=== PATIENT | male | born 1965 | race Caucasian/White ===

== ENCOUNTER → 2020-02-13 10:03 | Outpatient (BNVA) | payer MEDICARE, MEDICAID, SELFPAY | PROVIDERS: Family Provider Registered Nurse; PCP Registered Nurse; Visit Provider Registered Nurse | DX: M62.838 Other muscle spasm (principal); M54.6 Pain in thoracic spine; M25.369 Other instability, unspecified knee; M25.362 Other instability, left knee; G89.29 Other chronic pain; M99.01 Segmental and somatic dysfunction of cervical region | CPT/HCPCS: 80053; 85651; 86140 ==

== ENCOUNTER 2020-02-22 14:43 | Outpatient (RCR) | payer MEDICARE, SELFPAY | END 2020-03-21 23:59 | disposition home or self-care (01) | LOC: SPT 14:43 | PROVIDERS: Family Provider Registered Nurse; PCP Registered Nurse; Referring Provider Registered Nurse; Visit Provider Registered Nurse | DX: M25.362 Other instability, left knee (principal) | CPT/HCPCS: 97161 ==

== ENCOUNTER 2020-02-22 15:53 | Outpatient (CLI) | payer MEDICARE, SELFPAY ==
--- NOTE | 2020-02-22 16:45 | MR_ITS ---
WS: [id number] MRI RIGHT SHOULDER NONCONTRAST TECHNIQUE: Sagittal T2, coronal T1, T2 and proton density imaging. Axial gradient PDE imaging. CLINICAL INFORMATION: M25.511 - Pain in right shoulder COMPARISON: None. FINDINGS: Moderate degenerative arthritis at the AC joint. Mild edema at the AC joint with mild downsloping acr omion. Slight subacromial spurring. Narrowing of the subacromial space. Mild chronic thinning of the supraspinatus with tendinopathy. Tiny intrasubstance tear in the distal supraspinatus. Normal infraspinatus. Normal teres minor. Normal subscapularis. Normal biceps tendon in the bicipital groove. Normal biceps labral anchor. Normal intra-articular biceps tendon. Normal bone marrow signal in the glenoid and humerus. Mild degenerative fraying of the glenoid labrum. MR/MR shoulder RT wo con* [id number] IMPRESSION: 1. Moderate degenerative arthritis at the AC joint with mild edema and mild do wnsloping of the acromion. 2. Tendinopathy with a tiny intrasubstance tear in the distal supraspinatus. 3. Rotator cuff is otherwise intact. 4. Normal biceps tendon in the bicipital groove. 5. Degenerative fraying of the glenoid labrum.
== END 2020-02-22 15:54 | disposition home or self-care (01) ==
LOC: RADSHAW 15:56
PROVIDERS: PCP Registered Nurse; Visit Provider Registered Nurse
DX: M19.011 Primary osteoarthritis, right shoulder (principal)
CPT/HCPCS: 73221

== ENCOUNTER 2021-01-06 10:20 | Outpatient (CLI) | payer MEDICARE, SELFPAY ==
[2021-01-06 10:58] LABS: Basophils # 0.1 10^3/uL (0.0-0.1); Basophils % 1.1 %; Eosinophils % 0.8 %; Hematocrit 54.4 % (42.0-52.0); Lymphocytes # 0.8 10^3/uL (0.8-4.8); Lymphocytes % 15.7 %; Mean Corpuscular HGB Conc 33.1 g/dL (30.0-36.0); Mean Corpuscular Hemoglobin 31.2 pg (28.0-34.0); Mean Corpuscular Volume 94.3 fl (80-94); Mean Platelet Volume 9.8 fL (7.4-10.4); Monocytes # 0.4 10^3/uL (0.2-0.9); Monocytes % 6.6 %; Neutrophils # 3.99 10^3/uL (1.8-7.7); Neutrophils % 75.4 %; Nucleated Red Blood Cells % 0 %; Platelet Count 335 10^3/cmm (130-400); Red Blood Count 5.77 10^6/uL (4.1-5.3); Red Cell Distribution Width 12.3 % (12.1-15.1); White Blood Count 5.3 10^3/uL (4.0-10.0)
[2021-01-06 11:41] LABS: Troponin T (5th) Once 9 ng/L (0-15)
[2021-01-06 11:42] LABS: CRP High Sensitivity Cardiac < 0.150 mg/dL (0.0-0.3); Chol HDL Ratio 3.53 mg/dL (1.0-5.00); Cholesterol 201 mg/dL (0-200); HDL Cholesterol 57 mg/dL (60-100); LDL Cholesterol Calculated 117 mg/dL (50-129); LDL HDL Ratio 2.05 RATIO (0.00-3.22); Triglycerides 133 mg/dL (0-150)
[2021-01-06 11:43] LABS: Alanine Aminotransferase 115 U/L (0-41); Albumin Level 4.6 g/dL (3.5-5.2); Alkaline Phosphatase 78 IU/L (40-130); Anion Gap 17.2 (5-19); Aspartate Amino Transferase 45 U/L (0-40); Blood Urea Nitrogen 12 mg/dL (6-20); Calcium 9.4 mg/dL (8.5-10.5); Carbon Dioxide 22 mmol/L (22-29); Chloride 104 mmol/L (98-107); Globulin 2.6 g/dL (1.3-4.6); Glomerular Filtration Rate 100.7 mL/min (90-130); Glucose 112 mg/dL (65-115); Osmolality Calculated 289 mOsm/kg (285-295); Potassium 4.2 mmol/L (3.5-5.1); Sodium 139 mmol/L (136-145); Total Bilirubin 0.4 mg/dL (0.15-1.2); Total Protein 7.2 g/dL (6.6-8.7)
== END 2021-01-06 10:21 | disposition home or self-care (01) ==
PROVIDERS: PCP Registered Nurse; Visit Provider Registered Nurse
DX: I10 Essential (primary) hypertension (principal); R06.02 Shortness of breath; E78.5 Hyperlipidemia, unspecified
CPT/HCPCS: 36415; 80053; 80061; 84484; 85025; 86141

== ENCOUNTER 2021-01-08 12:08 | Outpatient (CLI) | payer MEDICARE, SELFPAY ==
--- NOTE | 2021-01-08 12:11 | ECG_ITS ---
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 Interpretive Statements NAME OF STUDY: TREADMILL STRESS TEST INDICATION: Shortness of Breath, PROCEDURE: At the baseline, the patient's blood pressure was 152/105 with a heart rate of 84. The baseline electrocardiogram showed normal sinus rhythm with poor R wave progression. Nonspecific T wave changes. Possible old inferior wall myocardial infarction. The patient exercised for 5 minutes and 31 seconds on a standard Irving protocol. Patient attained a maximum heart rate of 154 beats per minute(92% of the maximum predicted heart rate) with a blood pressure at the peak exercise of 211/100 mm Hg. The EKG at the peak exercise revealed no significant changes. Patient did not have any chest pain or any significant cardiac arrhythmias with the exercise During the recovery phase, there were no new changes. Blood pressure at the end of the recovery phase was 188/74 mm Hg with a heart rate of 111 per minute. CONCLUSION: 1. Nonspecific EKG changes with the treadmill exercise 2. No exercise-induced chest pain or cardiac arrhythmia 3. Impaired exercise tolerance, attained a maximum of 7.0 METs Electronically Signed On 01-09-2021 23:28:21 CDT by Jayshree Germain M.D. [id number]
[2021-01-08 12:12] VITALS: BMI 32.1
[2021-01-08 12:44] VITALS: BP 180/74; PULSE 99
== END 2021-01-08 12:09 | disposition home or self-care (01) ==
LOC: CDL 12:09
PROVIDERS: PCP Registered Nurse; Visit Provider Registered Nurse
DX: R06.02 Shortness of breath (principal)
CPT/HCPCS: 93017

== ENCOUNTER 2021-03-10 07:36 | Outpatient (CLI) | payer MEDICARE, SELFPAY ==
--- NOTE | 2021-03-10 08:00 | USCV_ITS ---
Zaid Girard Age: 55 Gender: M : 1965 Exam Date: 03/10/2021 08:00 Ordering Phys: Jayshree Germain MD ([email or web address]) Technologist: DIONNE Exam Location: [facility] [place] Indication: SOB X 6 MONTHS. NO HX CARDIAC INTERVENTION BP: 155 / 98 HR: 82 Rhythm: Sinus Technical Quality: Adequate MEASUREMENTS (Male / Female) Normal Values 2D ECHO LV Diastolic Diameter PLAX 5.0 cm 4.2 - 5.9 / 3.9 - 5.3 cm LV Systolic Diameter PLAX 3.1 cm IVS Diastolic Thickness 1.2 cm 0.6 - 1.0 / 0.6 - 0.9 cm IVS Systolic Thickness 1.8 cm LVPW Diastolic Thickness 1.4 cm 0.6 - 1.0 / 0.6 - 0.9 cm LVPW Systolic Thickness 1.4 cm LVOT Diameter 2.0 cm LV Ejection Fraction 2D Teich 66.1 % LV Ejection Fraction MOD 2C 51.7 % LV Ejection Fraction 2C AL 54.1 % LA Diameter 3.8 cm LA Width 3.6 cm LA Height 4.2 cm RA Width 3.0 cm RA Height 4.5 cm Aorta at Sinotubular Diameter 3.2 cm M-MODE Aortic Annulus Diameter 3.9 cm LA Ao Ratio MM 1.0 MV E Point Septal Separation 0.5 cm DOPPLER AV Peak Velocity 69.0 cm/s LVOT Peak Velocity 70.0 cm/s AV Area Cont Eq vti 1.9 cm squared AV Area Cont Eq pk 3.2 cm squared MV Peak Velocity 79.0 cm/s MV Area PHT 2.6 cm squared Mitral E to A Ratio 0.5 MV E' Velocity 18.0 cm/s Mitral E to MV E' Ratio 5.0 Mitral E to LV E' Lateral Ratio 4.1 Mitral E to LV E' Septal Ratio 6.5 TR Peak Velocity 183.3 cm/s TR Peak Gradient 13.4 mmHg Right Atrial Pressure 5.0 mmHg Pulmonary Artery Systolic Pressu 18.4 mmHg PV Peak Velocity 89.0 cm/s RV Acceleration Time 0.0 s RV Ejection Time 0.3 s RV AcT/ET 0.1 FINDINGS Left Ventricle Normal left ventricular size and systolic function, EF 58 %. Mild left ventricular hypertrophy. Grade I/IV diastolic dysfunction (abnormal relaxation filling pattern), normal to mildly elevated filling pressures. Right Ventricle Normal right ventricular size and systolic function. Right Atrium Normal right atrial size. Left Atrium The left atrium is normal in size. Mitral Valve Thickened anterior mitral leaflet.mild-moderate mitral valve regurgitation. Aortic Valve No gross abnormalities noted Tricuspid Valve No gross abnormalities noted Pulmonic Valve Mild pulmonary valve regurgitation. Pericardium Normal pericardium without effusion. Aorta Normal ascending aorta dimension. CONCLUSIONS Normal left ventricular size and systolic function, EF 58 %. Mild left ventricular hypertrophy. Grade I/IV diastolic dysfunction (abnormal relaxation filling pattern), normal to mildly elevated filling pressures. Thickened anterior mitral leaflet.mild-moderate mitral valve regurgitation. Mild pulmonary valve regurgitation. Trace of tricuspid regurgitation Possibly normal PA pressure There is no pericardial effusion. There are no intracardiac masses. Compared to the study from 12/18/2015, the mitral regurgitation appears to be new Dr Jayshree Germain MD [facility] (Electronically Signed) Final Date: 13 March 2021 08:17 S
== END 2021-03-10 07:37 | disposition home or self-care (01) ==
LOC: RAD 07:38
PROVIDERS: PCP Registered Nurse; Visit Provider Internal Medicine Cardiovascular Disease
DX: R06.00 Dyspnea, unspecified (principal); R06.02 Shortness of breath; I08.1 Rheumatic disorders of both mitral and tricuspid valves
CPT/HCPCS: 93306

== ENCOUNTER → 2021-06-02 10:52 | Outpatient (BNVA) | payer MEDICARE, SELFPAY | PROVIDERS: PCP Registered Nurse; Visit Provider Nurse Practitioner Family | DX: R06.02 Shortness of breath (principal); G47.30 Sleep apnea, unspecified; G47.00 Insomnia, unspecified; I10 Essential (primary) hypertension; R07.9 Chest pain, unspecified | CPT/HCPCS: 99214 ==

== ENCOUNTER → 2021-07-07 09:43 | Outpatient (BNVA) | payer MEDICARE, SELFPAY | PROVIDERS: PCP Registered Nurse; Visit Provider Internal Medicine Cardiovascular Disease | DX: I10 Essential (primary) hypertension (principal); R07.9 Chest pain, unspecified; K21.9 Gastro-esophageal reflux disease without esophagitis; M19.011 Primary osteoarthritis, right shoulder; M67.911 Unspecified disorder of synovium and tendon, right shoulder | CPT/HCPCS: 99213; 99214 ==

== ENCOUNTER → 2022-01-19 15:03 | Outpatient (BNVA) | payer MEDICARE, SELFPAY | PROVIDERS: PCP Registered Nurse; Visit Provider Internal Medicine Cardiovascular Disease | DX: I10 Essential (primary) hypertension (principal) | CPT/HCPCS: 99213; 99214 ==

== ENCOUNTER → 2022-02-13 09:06 | Outpatient (BNVA) | payer MEDICARE, SELFPAY | PROVIDERS: PCP Registered Nurse; Visit Provider Nurse Practitioner Family | DX: I10 Essential (primary) hypertension (principal); R06.02 Shortness of breath; R07.9 Chest pain, unspecified | CPT/HCPCS: 80048 ==

== ENCOUNTER → 2022-09-14 08:38 | Outpatient (BNVA) | payer MEDICARE, SELFPAY | PROVIDERS: PCP Registered Nurse; Visit Provider Registered Nurse | DX: E78.5 Hyperlipidemia, unspecified (principal); I10 Essential (primary) hypertension | CPT/HCPCS: 80053; 80061; 85025 ==

== ENCOUNTER → 2023-01-18 14:17 | Outpatient (BNVA) | payer MEDICARE, SELFPAY | PROVIDERS: PCP Registered Nurse; Visit Provider Internal Medicine Cardiovascular Disease | DX: I10 Essential (primary) hypertension (principal) | CPT/HCPCS: 99214 ==

== ENCOUNTER 2023-01-26 14:30 | Observation (INO) | payer MEDICARE, SELFPAY ==
[2023-01-26] VITALS (57 sets, daily range): BP systolic 95–173; BP diastolic 63–125; PULSE 74–96; RESP 16–41; TEMP 36.4–36.5; O2SAT 89–99; BMI 33.0
--- NOTE | 2023-01-26 14:31 | ECG_ITS ---
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 Measurements Intervals [place] Rate: 89 P: 26 PA: 171 QRS: -19 QRSD: 95 T: 30 QT: 344 QTc: 419 Interpretive Statements SINUS RHYTHM MODERATE VOLTAGE CRITERIA FOR LVH, CONSIDER NORMAL VARIANT [MEETS CRITERIA IN ONE OF: R(aVL), S(V1), R(V5), R(V5/V6)+S(V1)] INFERIOR MYOCARDIAL INFARCTION , PROBABLY OLD [40+ ms Q WAVE AND/OR ST/T ABNORMALITY IN II/aVF] Compared to ECG 09/02/2018 15:22:53 Myocardial infarct finding now present T-wave abnormality no longer present Electronically Signed On 01-26-2023 17:19:48 DIELECTRIC TESTING MACHINE OPERATOR by Armando Andrea M.D. [id number] f
--- NOTE | 2023-01-26 14:31 | XR_ITS ---
WS: [id number] Portable AP upright chest, 01/26/2023 Clinical Data: cp Comparison: Portable chest, 09/02/2018. Findings: No nodules, masses or effusions are seen. The heart is normal. The pulmonary vascularity is not increased. No pneumonia or pneumothorax is seen. There are monitor leads on the chest wall. Impression: Negative chest.
--- NOTE | 2023-01-26 14:43 | W.ED.CHESTPA ---
HPI - Chest Pain General: Chief Complaint: Chest Pain Stated Complaint: chest pressure Time Seen by Provider: 01/26/23 14:33 Source: patient Mode of arrival: ambulatory Limitations: no limitations History of Present Illness: Patient is a 57-year-old male with past medical history of hypertension who presents to the emergency department complaining of left chest pressure onset one week. Patient states last Wednesday he noticed a pressure/squeezing like sensation in the left side of his chest that seems to come and go while at rest. He states symptoms significantly worsen with minimal exertion and has limited his activity. He reports becoming very short of breath with minimal exertion. States he usually walks up to 5 miles a day and now can barely walk across the parking lot before he is winded, fatigued, and has to rest due to chest tightness. He states recently pain has started to radiate into his left neck/left arm. He has noticed some mild extremity swelling stating his wedding ring is tight and he can now visualize a sock line. States he has lost about 14 pounds with diet/exercise. Denies recent illness/URI like symptoms. Reports strong cardiac family history stating his father has had multiple MIs starting in his 50s. Most recent cardiac studies listed below: Date of Service: 03/10/21 Procedure(s): CV. echo complete* [id number] ?CONCLUSIONS ?Normal left ventricular size and systolic function, EF 58 %. ?Mild left ventricular hypertrophy. Grade I/IV diastolic ?dysfunction (abnormal relaxation filling pattern), normal to?mildly elevated filling pressures. ?Thickened anterior mitral leaflet.mild-moderate mitral valve?regurgitation. ?Mild pulmonary valve regurgitation. ?Trace of tricuspid regurgitation ?Possibly normal PA pressure ?There is no pericardial effusion. ?There are no intracardiac masses. ?Compared to the study from 12/18/2015, the mitral regurgitation?appears to be new ?Dr Jayshree Germain MD [facility]? ?(Electronically Signed) 01/08/21 Treadmill Stress Test 1.? Nonspecific EKG changes with the treadmill exercise 2.? No exercise-induced chest pain or cardiac arrhythmia 3.? Impaired exercise tolerance, attained a maximum of 7.0 METs 09/15/18 Stress Test Myocardial perfusion imaging is normal and low probability for obstructive ?coronary artery disease.? EKG segment will be documented separately. 1. No significant EKG changes with the LexiScan infusion. 2. No LexiScan induced chest pain or cardiac arrhythmia. 3. Normal blood pressure and heart rate response. complaint: chest pain Onset (ago): week(s) (one week) Timing of current episode: episodic Prior episodes: No Onset: during rest and during exertion Pain location: left chest Pain radiation: left arm and neck Severity: mild Quality: tightness and other (pressure, squeezing) Relieving factors: rest Exacerbating factors: exertion and movement Associated symptoms: Reports dyspnea; Deny abdominal pain, diaphoresis, fever(s), nausea, palpitations, syncope or vomiting Treatment prior to arrival: none Risk Factors: Coronary artery disease risk factors: hyperlipidemia, hypertension and family history of CAD before age 50 Thoracic aortic dissection risk factors: none Review of Systems Const: Reports: change in weight (states he has lost 14 lbs with diet/exercise ); Denies: fever(s), chills, fatigue, night sweats or diaphoresis Eyes: Denies: change in vision or blurry vision Card: Reports: chest pain, edema and dyspnea on exertion; Denies: palpitations, irregular heart rhythm, lightheadedness, syncope, pre-syncope, orthopnea, leg pain with exertion or acrocyanosis Resp: Reports: dyspnea; Denies: productive cough, non-productive cough, wheezing, pain on inspiration, change in phlegm color, hemoptysis or chest congestion GI: Denies: abdominal pain, nausea, vomiting, heartburn or diarrhea : Denies: difficulty urinating or dysuria Musc: Denies: neck pain, back pain, extremity pain, extremity swelling or joint pain Skin/Breast: Denies: rash Neuro: Denies: headache(s), numbness in extremities, weakness in extremities, sensory changes or dizziness Psych: Denies: anxiety PFSH ED PFSH: Medical History GERD (gastroesophageal reflux disease) HTN (hypertension) Hx of fracture of skull Shortness of breath Sleep apnea Surgical History History of surgery on arm History of tonsillectomy and adenoidectomy History of total left hip replacement x 2 Hx of hernia repair x 2 Family History Mother CAD (coronary artery disease) Stroke Hypertension Father CAD (coronary artery disease) HI x 4, started in his 50's Diabetes Grandmother Dementia Grandfather Dementia Stroke Social History Smoking and tobacco/nicotine status: never used tobacco/nicotine Alcohol intake: current Alcohol intake frequency: 3 or more drinks per day Substance/Drug Use: never Lives independently: No Household members: spouse and children Marital status: Current occupational status: unemployed Do you think of yourself as: Straight/Heterosexual Current gender identity: Male Agree to transfusion: Yes Physical Exam Const: COMMON NORMALS: no acute distress, patient oriented x3, no limitations, alert and well nourished GENERAL APPEARANCE: cooperative NUTRITIONAL APPEARANCE: overweight ORIENTATION/CONSCIOUSNESS: Yes awake, Yes oriented to person, Yes oriented to place and Yes oriented to time HENMT: COMMON NORMALS: normocephalic and atraumatic HEAD & SCALP: normal to inspection, normocephalic and atraumatic Neck/C-Spine: COMMON NORMALS: full ROM, no lymphadenopathy, supple, no meningeal signs, no JVD and No carotid bruits Chest: COMMONS NORMALS: normal inspection of the chest and normal palpation of entire chest wall Resp: COMMON NORMALS: normal respiratory effort and clear to auscultation bilaterally AUSCULTATION: clear to auscultation bilaterally Cardio: COMMON NORMALS: no JVD, regular rate, regular rhythm and Peripheral pulses 2+ throughout JUGULAR VENOUS DISTENTION: no JVD RATE: regular rate RHYTHM: regular rhythm BRUITS: no carotid bruits PERIPHERAL PULSES: Peripheral pulses 2+ throughout GI: COMMON NORMALS: Normal to inspection, nondistended, normoactive bowel sounds present, Soft to palpation, non-tender, No hepatosplenomegaly present and no masses PALPATION: Yes Soft to palpation and Yes No hepatosplenomegaly present : COMMON NORMALS: Yes no CVA tenderness BLADDER/KIDNEY EXAM: Yes no CVA tenderness Back/Pelvis: COMMON NORMALS: no CVA tenderness and thoracic and lumbar spine normal to inspection Extremity: COMMON NORMALS: normal to inspection NARRATIVE EXTREMITY EXAM: very mild non-pitting edema; can see sock line-states this is abnormal for him GENERAL: Yes normal exam except as noted Neuro: COMMON NORMALS: patient oriented x3, moves all extremities, no focal motor deficits and no sensory deficits noted SENSORIUM/ORIENTATION: Yes alert, Yes oriented to person, Yes oriented to place and Yes oriented to time MENINGEAL SIGNS: Yes no meningeal signs Skin: COMMON NORMALS: no rashes or lesions noted GENERAL SKIN EXAM: no rashes or lesions noted Course Consultations: Consultation #1: Dr. Garcia-will admit patient Vital Signs: Vital signs: Vital Signs Temperature 97.5 F L 01/26/23 14:39 Pulse Rate 83 01/26/23 16:35 Respiratory Rate 26 H 01/26/23 16:35 Blood Pressure 143/98 01/26/23 16:35 Pulse Oximetry 93 01/26/23 16:35 Oxygen Delivery Me thod Room Air 01/26/23 14:42 MDM - Chest Pain Medical Decision Making Patient is a nice 57-year-old male with a history of hypertension and hyperlipidemia here for complaints of worsening chest pain over the past week. He feels like pain is intermittently present at rest with significant worsening even with minimal exertion. He states he normally walks up to 5 miles a day and can barely walk across the parking lot now before the chest pressure/tightness and shortness of breath limits him and he has to sit down and rest. He does have a strong cardiac family history with his dad having multiple MIs in his early 50s. Patient was given 2 nitro here with alleviation of his symptoms. Blood work overall is reassuring with a normal baseline troponin and nonsignificant delta although given his history I feel patient would most likely benefit from observation. Most likely needs repeat stress testing as last one was two years ago. Spoke to Dr. Thomas who agrees will place admit orders. I spoke to hospitalist Dr. Garcia who will admit. Lab Data 01/26/23 14:44 01/26/23 14:44 Laboratory Results WBC 6.58 10^3/uL (3.29-11.43) 01/26/23 14:44 RBC 5.19 10^6/uL (3.85-5.65) 01/26/23 14:44 Hgb 16.40 g/dL (11.27-16.99) 01/26/23 14:44 Hct 48.0 % (37-53) 01/26/23 14:44 MCV 92.5 fl (82-101) 01/26/23 14:44 MCH 31.6 pg (27-33) 01/26/23 14:44 MCHC 34.2 g/dL (30-55) 01/26/23 14:44 RDW 12.6 % (12.1-15.1) 01/26/23 14:44 Plt Count 315 10^3/cmm (157-399) 01/26/23 14:44 MPV 9.8 fL (7.4-10.4) 01/26/23 14:44 Neut % (Auto) 66.3 % 01/26/23 14:44 Lymph % (Auto) 22.3 % 01/26/23 14:44 [place] % (Auto) 7.8 % 01/26/23 14:44 Eos % (Auto) 1.8 % 01/26/23 14:44 Baso % (Auto) 1.2 % 01/26/23 14:44 Neut # (Auto) 4.36 10^3/uL (1.8-7.7) 01/26/23 14:44 Lymph # (Auto) 1.5 10^3/uL (0.8-4.8) 01/26/23 14:44 [place] # (Auto) 0.5 10^3/uL (0.2-0.9) 01/26/23 14:44 Eos # (Auto) 0.1 10^3/uL (0.0-0.8) 01/26/23 14:44 Baso # (Auto) 0.1 10^3/uL (0.0-0.1) 01/26/23 14:44 Nucleated RBC % (auto) 0 % 01/26/23 14:44 Nucleated RBCs # 0.0 /100WBC 01/26/23 14:44 D-Dimer 0.30 ug/mLFEU (0-0.59) 01/26/23 14:44 Sodium 138 mmol/L (136-145) 01/26/23 14:44 Potassium 4.4 mmol/L (3.5-5.1) 01/26/23 14:44 Chloride 106 mmol/L (98-107) 01/26/23 14:44 Carbon Dioxide 20 mmol/L (22-29) L 01/26/23 14:44 Anion Gap 16.4 (5-19) 01/26/23 14:44 BUN 19 mg/dL (6-20) 01/26/23 14:44 Creatinine 1.0 mg/dL (0.7-1.2) 01/26/23 14:44 GFR Calculation 77.3 mL/min (90-130) L 01/26/23 14:44 Glucose 105 mg/dL (65-115) 01/26/23 14:44 Calculated Osmolality 289 mOsm/kg (285-295) 01/26/23 14:44 Calcium 9.6 mg/dL (8.5-10.5) 01/26/23 14:44 Total Bilirubin 0.4 mg/dL (0.15-1.2) 01/26/23 14:44 AST 31 U/L (0-40) 01/26/23 14:44 ALT 77 U/L (0-41) H 01/26/23 14:44 Alkaline Phosphatase 67 U/L (40-130) 01/26/23 14:44 Troponin T Baseline 8 ng/L (0-15) 01/26/23 14:44 Troponin T 120 Minute 10.01 ng/L (0-15) 01/26/23 16:28 NT-Pro-B Natriuret Pep < 36 pg/mL (0-125) 01/26/23 14:44 Total Protein 6.4 g/dL (6.6-8.7) L 01/26/23 14:44 Albumin 4.6 g/dL (3.5-5.2) 01/26/23 14:44 Globulin 1.8 g/dL (1.3-4.6) 01/26/23 14:44 All radiology interpretation(s) finalized by discharge Discharge Plan Discharge Patient Disposition: Placed in Observation Clinical Impression: Chest pain Qualifiers: Chest pain type: unspecified Qualified Code(s): R07.9 - Chest pain, unspecified Coding Level of Care Code ED Turner And Former Automatic for Tyson Alonzo
[2023-01-26 14:51] LABS: Basophils # 0.1 10^3/uL (0.0-0.1); Basophils % 1.2 %; Eosinophils # 0.1 10^3/uL (0.0-0.8); Eosinophils % 1.8 %; Lymphocytes # 1.5 10^3/uL (0.8-4.8); Lymphocytes % 22.3 %; Mean Corpuscular HGB Conc 34.2 g/dL (30-55); Mean Corpuscular Hemoglobin 31.6 pg (27-33); Mean Corpuscular Volume 92.5 fl (82-101); Mean Platelet Volume 9.8 fL (7.4-10.4); Monocytes # 0.5 10^3/uL (0.2-0.9); Monocytes % 7.8 %; Neutrophils # 4.36 10^3/uL (1.8-7.7); Neutrophils % 66.3 %; Nucleated Red Blood Cells % 0 %; Platelet Count 315 10^3/cmm (157-399); Red Blood Count 5.19 10^6/uL (3.85-5.65); Red Cell Distribution Width 12.6 % (12.1-15.1); White Blood Count 6.58 10^3/uL (3.29-11.43)
[2023-01-26] MEDS: labetalol 5 mg/mL SDV 20mL 10 MG IVP (15:04)
[2023-01-26 15:13] LABS: Troponin(5th) Baseline 8 ng/L (0-15)
[2023-01-26 15:15] LABS: Alanine Aminotransferase 77 U/L (0-41); Albumin Level 4.6 g/dL (3.5-5.2); Alkaline Phosphatase 67 U/L (40-130); Aspartate Amino Transferase 31 U/L (0-40); Blood Urea Nitrogen 19 mg/dL (6-20); Calcium 9.6 mg/dL (8.5-10.5); Carbon Dioxide 20 mmol/L (22-29); Chloride 106 mmol/L (98-107); Globulin 1.8 g/dL (1.3-4.6); Glomerular Filtration Rate 77.3 mL/min (90-130); Glucose 105 mg/dL (65-115); Osmolality Calculated 289 mOsm/kg (285-295); Sodium 138 mmol/L (136-145); Total Bilirubin 0.4 mg/dL (0.15-1.2); Total Protein 6.4 g/dL (6.6-8.7)
[2023-01-26 15:18] LABS: Anion Gap 16.4 (5-19); Potassium 4.4 mmol/L (3.5-5.1)
[2023-01-26 15:47] LABS: NT Pro B Type Natriuretic Pept < 36 pg/mL (0-125)
[2023-01-26] MEDS: nitroglycerin 0.4 mg sublingual Tablet SUBLINGUAL ×2 (15:54→16:15)
--- NOTE | 2023-01-26 16:37 | ECG_ITS ---
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 Measurements Intervals [place] Rate: 79 P: 40 ME: 179 QRS: -21 QRSD: 98 T: 46 QT: 358 QTc: 413 Interpretive Statements SINUS RHYTHM BORDERLINE LEFT AXIS DEVIATION [QRS AXIS < -20] Compared to ECG 01/26/2023 14:36:30 Myocardial infarct finding no longer present Electronically Signed On 01-26-2023 17:19:59 AIRCRAFT NAVIGATOR by Armando Andrea M.D. [id number]
--- NOTE | 2023-01-26 16:59 | PM.HP ---
Providers/Chief Complaint Admitting Physician: Daniel Garcia Primary Care Provider: SHELLEY Rodriguez Chief Complaint: chest pressure History of Present Illness Zaid Girard is a 57 year old male with a past medical history significant for GERD, hypertension, skull fracture, and sleep apnea who presents emergency department chest pressure. Patient reports symptoms started last Wednesday. He thinks he was at rest when he started and since that time they come and go. Exertion consistently makes the symptoms worse. 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 He states that sensations not pain but it is a strong pressure on the left side of his chest with radiation up into the left shoulder and arm. He also notes exertion at night when he gets up to the restroom to lay back down he seems to become symptomatic as well. Rest seems to improve the symptoms somewhat. In the ED, troponin was within normal limits. EKG was negative for STEMI. He was treated with nitroglycerin initially without significant change. He received a second nitroglycerin with significant fragment and the pressure. Patient denies prior cardiac catheterization. He had a stress test about 2 years ago which showed nonspecific EKG changes with exercise and impaired exercise tolerance but only 7 METS obtained. Echocardiogram in 2020 showed preserved LVEF of 58%, mild LVH, and grade I/V diastolic dysfunction. Endorses a strong family history in both parents. His father had multiple myocardial infarctions with his earliest massive heart attack in his early 50s. Patient has a history of hypertension. He follows with Dr. Logan. He states he was seen about a week ago started on new medication. He is only taken about 1 dose of his medication there was some trouble getting it from pharmacy initially. He reports he had a lot of trouble with his blood pressure over the years. He cannot remember his exact medications but states that his home blood pressures usually runs about 140-160/90-100. His pressures emergency room are similar to this number. Review of Systems Narrative: A complete review of systems was obtained and is negative except as stated in HPI. Medications/Allergies Home Medications Medication Instructions Recorded Confirmed Last Taken Type ibuprofen 200 mg tablet (Advil) 200 mg PO Q6H PRN 03/20/19 09/15/22 Unknown History nitroglycerin 0.4 mg sublingual 0.4 mg sublingual Q5M PRN 03/20/19 09/15/22 Unknown History tablet (Nitrostat) ascorbate calcium (vitamin C) 500 500 mg PO DAILY 01/21/21 09/15/22 Unknown History mg tablet cholecalciferol (vitamin D3) 25 25 mcg PO DAILY 01/21/21 09/15/22 Unknown History mcg (1,000 unit) capsule lactobacillus combination no.4 3 3,000 mmu cells PO DAILY 01/21/21 09/15/22 Unknown History billion cell capsule (Probiotic) melatonin 10 mg capsule 40 mg PO DAILY 01/21/21 09/15/22 Unknown History omega 3-onm-ajg-fish oil 300 1 cap PO DAILY 01/21/21 09/15/22 Unknown History mg-1,000 mg capsule zinc 50 mg tablet 50 mg PO DAILY 01/21/21 09/15/22 Unknown History zolpidem 10 mg tablet (Ambien) 10 mg PO DAILY 30 days #30 tabs 07/31/22 09/15/22 Unknown Rx amlodipine 10 mg tablet 10 mg PO DAILY 90 days #90 tabs 09/15/22 09/15/22 Unknown Rx valsartan 160 mg tablet 160 mg PO BID 90 days #180 tabs 09/15/22 09/15/22 Unknown Rx cyclobenzaprine 10 mg tablet See Rx Instructions .Route 10/19/22 Unknown Rx .COMPLEX #90 tabs carvedilol 6.25 mg tablet 6.25 mg PO BID #60 tabs 01/25/23 Unknown Rx Allergies Allergy/AdvReac Type Severity Reaction Status Date / Time gabapentin Allergy I went Verified 01/18/23 14:24 crazy PFSH Acute PFSH: Medical History (Updated 01/26/23 @ 17:23 by Daniel Garcia MD) Abnormal EKG Benign essential HTN Bilateral thoracic back pain Cervical (neck) region somatic dysfunction Degenerative arthritis of right shoulder region GERD (gastroesophageal reflux disease) HTN (hypertension) Hx of fracture of skull Intermittent chest pain Knee buckling Muscle spasm of shoulder region Rosacea Shortness of breath Sleep apnea Tendinopathy of right shoulder Surgical History History of surgery on arm History of tonsillectomy and adenoidectomy History of total left hip replacement x 2 Hx of hernia repair x 2 Family History Mother CAD (coronary artery disease) Stroke Hypertension Father CAD (coronary artery disease) [place] x 4, started in his 50's Diabetes Grandmother Dementia Grandfather Dementia Stroke Social History Smoking and tobacco/nicotine status: never used tobacco/nicotine Alcohol intake: current Alcohol intake frequency: 3 or more drinks per day Substance/Drug Use: never Lives independently: No Household members: spouse and children Marital status: Current occupational status: unemployed Do you think of yourself as: Straight/Heterosexual Current gender identity: Male Agree to transfusion: Yes Vitals/I&O/Wt Last Vital Signs Temp 97.5 F L 01/26/23 14:39 Pulse 83 01/26/23 16:35 Resp 26 H 01/26/23 16:35 BP 143/98 01/26/23 16:35 Pulse Ox 93 01/26/23 16:35 O2 Del Method Room Air 01/26/23 14:42 Weight last 48 hrs Weight 98.43 kg Physical Exam Narrative: General: Patient is awake and alert. Very pleasant. Head: Normocephalic. Atraumatic. EOM intact. Neck: No JVD. Cardiovascular: RRR. No gallops. No murmurs. No peripheral edema. Lungs: Clear to auscultation, no use of accessory muscles, no crackles or wheezes. Skin: No jaundice. No rashes. Abdomen: Normal bowel sounds, abdomen soft and nontender. Genito Urinary: Genital exam not performed since complaints not related. Rectal: Rectal exam not performed since no symptoms indicated blood loss. Extremities: No cyanosis or clubbing. Musculoskeletal:No swollen or erythematous joints. Neurological: Moves all 4 extremities. No myoclonus. 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 Echocardiogram ordered Analgesics as needed Qualifiers: Chest pain type: unspecified Qualified Code(s): R07.9 - Chest pain, unspecified (2) HTN (hypertension): Continue home Norvasc Continue home Coreg Probably needs diuretic as well Monitor blood pressure closely Qualifiers: Hypertension type: essential hypertension Qualified Code(s): I10 - Essential (primary) hypertension (3) Shortness of breath on exertion: Echo as above Telemetry monitoring (4) Insomnia: Continue home Ambien if available, otherwise substitute Qualifiers: Insomnia type: primary Qualified Code(s): F51.01 - Primary insomnia (5) GERD (gastroesophageal reflux disease): Monitor (6) Sleep apnea: Need to clarify if wears CPAP or not Plan DVT ppx: Lovenox Code: Full Attestations Medical Necessity Statement*: Patient presents with chest pressure with multiple risk factors for coronary disease with expected hospitalization not to cross two midnights for serial troponin, telemetry, stress testing, echocardiography, and supportive care. Coding Level of Care Code Acute Code for [facility] Fwd Diagnoses Chest pain R07.9 Chest pain type: unspecified HTN (hypertension) I10 Hypertension type: essential hypertension Shortness of breath on exertion R06.02 Insomnia F51.01 Insomnia type: primary GERD (gastroesophageal reflux disease) K21.9 Sleep apnea G47.30
[2023-01-26 17:07] LABS: Troponin 5 2HR 10.01 ng/L (0-15); Troponin 5 2HR Delta 2.01 ABS# (0-10)
--- NOTE | 2023-01-26 17:36 | USCV_ITS ---
Zaid Girard Age: 57 Gender: M : 1965 Exam Date: 01/26/2023 18:05 Ordering Phys: Daniel Garcia MD Technologist: DIONNE Exam Location: [facility] Indication: chest pressure today and severe PEREIRA, unable to walk 1 blk w/o SOB. BLE edema. Hx HTN. No hx cardiac intervention per patient. BP: 144 / 99 HR: 78 Rhythm: Sinus Technical Quality: Fair with OPTISON MEASUREMENTS (Male / Female) Normal Values 2D ECHO LV Diastolic Diameter PLAX 4.6 cm 4.2 - 5.9 / 3.9 - 5.3 cm LV Systolic Diameter PLAX 2.7 cm IVS Diastolic Thickness 1.5 cm 0.6 - 1.0 / 0.6 - 0.9 cm IVS Systolic Thickness 1.8 cm LVPW Diastolic Thickness 1.5 cm 0.6 - 1.0 / 0.6 - 0.9 cm LVPW Systolic Thickness 2.2 cm LVOT Diameter 1.8 cm LV Ejection Fraction 2D Teich 71.7 % LV Ejection Fraction MOD 2C 45.5 % LV Ejection Fraction 2C AL 46.6 % LA Diameter 3.3 cm LA Width 3.0 cm LA Height 5.4 cm RA Width 2.8 cm RA Height 3.8 cm Aorta at Sinotubular Diameter 3.4 cm IVC Diameter 2.2 cm M-MODE Aortic Annulus Diameter 3.9 cm LA Ao Ratio MM 0.7 MV E Point Septal Separation 0.6 cm DOPPLER AV Peak Velocity 75.0 cm/s LVOT Peak Velocity 71.0 cm/s AV Area Cont Eq vti 2.3 cm squared AV Area Cont Eq pk 2.4 cm squared MV Peak Velocity 64.0 cm/s MV Area PHT 2.8 cm squared Mitral E to A Ratio 0.7 MV E' Velocity 22.0 cm/s Mitral E to MV E' Ratio 7.1 Mitral E to LV E' Lateral Ratio 6.3 Mitral E to LV E' Septal Ratio 8.4 TV Peak E Velocity 42.0 cm/s PV Peak Velocity 82.0 cm/s RV Acceleration Time 0.1 s RV Ejection Time 0.3 s RV AcT/ET 0.2 FINDINGS Left Ventricle Normal left ventricular size with a slightly diminished ejection fracti of 45 to 50%(visual). No regional wall motion abnormalities. Mild left ventricular hypertrophy. Grade I/IV diastolic dysfunction (abnormal relaxation filling pattern), normal to mildly elevated filling pressures. Right Ventricle Possibly of normal size ejection fraction Right Atrium Normal right atrial size. Left Atrium Possibly of normal size Mitral Valve No gross abnormalities Aortic Valve No gross abnormalities Tricuspid Valve No gross abnormalities Pulmonic Valve Mild pulmonary valve regurgitation. Pericardium No pericardial effusion. Aorta Aortic root measuring 4.0 cm at the level of the sinuses IVC Inferior vena cava not visualized. CONCLUSIONS Normal left ventricular size with a slightly diminished ejection fracti of 45 to 50%(visual). No regional wall motion abnormalities. Mild left ventricular hypertrophy. Grade I/IV diastolic dysfunction (abnormal relaxation filling pattern), normal to mildly elevated filling pressures. (Echo contrast - Optison was used to delineate the endocardium and to estimate the LV ejection fraction) Mild pulmonary valve regurgitation. There is no pericardial effusion. Technically difficult study because of the poor ultrasonic window. Dr Jayshree Germain MD FACC (Electronically Signed) Final Date: 26 January 2023 20:51 S
--- NOTE | 2023-01-26 19:38 | ECG_ITS ---
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 Interpretive Statements NAME OF STUDY: LEXISCAN SESTAMIBI STRESS TEST INDICATION: Chest Pain/ RESULTS TO DR PATEL PROCEDURE: At the baseline, the EKG revealed normal sinus rhythm with a normal ST Ts. The baseline heart was 87 bpm with a blood pressue of 154/106 mm of Hg Lexiscan was infused over a period of 20 seconds. A total of 0.4 milligrams of Lexiscan was infused. The stress phase was continued for a total of 5 minutes. Heart rate at the end of the stress phase was 106 bpm with a blood pressure 143/91 mm of Hg. The EKG at the peak infusion revealed no significant changes. Sestamibi was injected 20 seconds after the Lexiscan infusion. Heart rate at the end of the recovery phase was 96 bpm with a blood pressure of 144/90 mm of Hg. CONCLUSION: 1. No significant EKG changes with the LexiScan infusion 2. No LexiScan induced chest pain or cardiac arrhythmia 3. Normal blood pressure and heart rate response 4. Sestamibi/sestamibi perfusion scan pending; see separate report. Electronically Signed On 01-30-2023 13:36:38 TREE SCOUT by Jayshree Germain M.D. [id number]
[2023-01-26 20:26] LABS: Chol HDL Ratio 4.57 mg/dL (1.0-5.00); Cholesterol 201 mg/dL (0-200); HDL Cholesterol 44 mg/dL (60-100); LDL Cholesterol Calculated 99 mg/dL (50-129); LDL HDL Ratio 2.25 RATIO (0.00-3.22); Triglycerides 288 mg/dL (0-150)
[2023-01-26] MEDS: losartan 50 mg Tablet PO (20:31)
[2023-01-26] MEDS: carvedilol 6.25 mg Tablet PO (20:31)
[2023-01-26] MEDS: acetaminophen 325 mg Tablet 650 MG PO (20:32)
[2023-01-26] MEDS: zolpidem 5 mg Tablet 10 MG PO (20:32)
[2023-01-26] MEDS: enoxaparin 40 mg/0.4 mL Syringe SUBCUT (20:34)
--- NOTE | 2023-01-26 21:07 | ECG_ITS ---
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 Measurements Intervals [place] Rate: 75 P: 30 CT: 182 QRS: -18 QRSD: 104 T: 33 QT: 381 QTc: 428 Interpretive Statements SINUS RHYTHM Compared to ECG 01/26/2023 16:37:53 No significant changes Electronically Signed On 01-26-2023 21:17:55 GOVERNMENT RELATIONS DIRECTOR by Armando Andrea M.D. [email or web address] [email or web address] hospitalLabmeetingcleveland clinic medina [id number]
[2023-01-26 21:33] LABS: Troponin 5 6HR 9.53 ng/L (0-15); Troponin 5 6HR Delta 1.53 ng/L (0-12)
[2023-01-26 22:35] LABS: Glucose Point of Care 109 mg/dL (70-110)
[2023-01-26 22:36] LABS: Estmated Average Glucose 128; Hemoglobin A1C 6.1 % (4.0-6.0)
--- NOTE | 2023-01-26 23:01 | CTR_ITS ---
PROCEDURE INFORMATION: Exam: CTA Chest With Contrast Exam date and time: 01/27/2023 2:16 AM Age: 57 years old Clinical indication: Other: Assess for dissection. Transient diplopia; Chest wall pain; Additional info: Aorta, carotids, vertebrals, assess for dissection. Transient diplopia, chest pain. TECHNIQUE: Imaging protocol: Computed tomographic angiography of the chest with contrast. Exam focused on the arteries. 3D rendering (Not supervised by radiologist): MIP and/or 3D reconstructed images were created by the technologist. Radiation optimization: All CT scans at this facility use at least one of these dose optimization techniques: automated exposure control; mA and/or kV adjustment per patient size (includes targeted exams where dose is matched to clinical indication); or iterative reconstruction. Contrast material: OMNI 350; Contrast volume: 120 ml; Contrast route: INTRAVENOUS (IV); REPORTING DATA: Count of CT and Cardiac NM exams in prior 12 months: This patient has received 0 known CTs and 0 known cardiac nuclear medicine studies in the 12 months prior to the current study. COMPARISON: CR XR chest 1V portable [id number] 01/26/2023 3:11 PM RADIATION DOSE METRICS: Total DLP (mGy-cm): 587.48 FINDINGS: Pulmonary arteries: No main, lobar, or segmental PE identified. Aorta: Unremarkable. No aortic aneurysm. No aortic dissection. Veins: IVC filter. Lungs: The lungs show no dominant mass or spiculated nodule. No focal consolidation is seen. Minimal lung base atelectasis or scarring. Pleural spaces: No pneumothorax. No pleural effusion noted. Heart: The heart is not enlarged. No pericardial effusion is noted. Lymph nodes: No bulky hilar or mediastinal lymphadenopathy noted. Diaphragm: Small hiatal hernia. Liver: Liver is steatotic. Gallbladder and bile ducts: Small gallstones are present. Bones/joints: Skeletal structures are age appropriate. No acute fracture is seen. Soft tissues: Unremarkable. CT/CT angio chest [id number] IMPRESSION: 1. The exam is negative for PE or focal pneumonia. 2. IVC filter, cholelithiasis, hepatic steatosis.
[2023-01-27] VITALS (25 sets, daily range): BP systolic 143–165; BP diastolic 79–105; PULSE 75–104; RESP 13–40; TEMP 36.1–36.7; O2SAT 91–95
[2023-01-27 01:05] LABS: Troponin 5 6HR Delta 1.46 ng/L (0-12)
[2023-01-27 01:06] LABS: Troponin 5 6HR 9.46 ng/L (0-15)
[2023-01-27] MEDS: iohexol 350 mg/mL 500 mL Btl (per mL) IV (02:23)
[2023-01-27] MEDS: perflutren protein-a microsphr 0.22 mg/mL SDV 3 mL IV (06:32)
[2023-01-27] MEDS: regadenoson 0.4 Mg/5 ml Syringe IVP (08:10)
--- NOTE | 2023-01-27 08:11 | PC.PHAR ---
PT IN STRESS TEST AT 8:00 AM- WAITING FOR PT TO RETURN TO DO MED REC
[2023-01-27] MEDS: amlodipine 10 mg Tablet PO (09:54)
[2023-01-27] MEDS: losartan 50 mg Tablet PO ×2 (09:54→18:22)
[2023-01-27] MEDS: carvedilol 6.25 mg Tablet PO ×2 (09:54→18:22)
[2023-01-27] MEDS: calcium carbonate 500 mg Chew Tablet 1000 MG PO (09:57)
--- NOTE | 2023-01-27 10:46 | PC.CHAP ---
Pastoral Care Encounter/Spiritual Assessment Type of Contact [] Declined printing pressman visit [] Patient/Family/Request visit [] Outpatient visit [] Follow-up visit [] Physician referral [] Code/Alert [x] Routine visit [] Staff referral [] Actively dying [] Patient sleeping [] Family support [] [] Out of room [] Palliative care [] [] Receiving care in room [] Pre-surgical visit [] Trauma [] Long length of stay [] ICU visit [] Other: Relational/Emotional Strength [x] Patient feels connected with others/family/visitors/staff [] Distress [] Loneliness/isolation [] Abandonment Spirituality of Patient [] Person of Franca [] Attends Tenriism of their Franca [x] Believes in Prayer [] Reads Bible or Confucianist materials [] There are Spiritual issues to be addressed Sole Cementer Interventions [x] Prayer [x] Active listening [] Non-anxious presence [] Spiritual/emotional support [] Crisis/trauma care [] Spiritual counseling [] Bereavement support [] Provided bereavement packet [] Provided Bible/devotional materials [] Provided toy/stuffed animal, coloring book to patient or family member [] Provided Communion [] Anointing/[place] [] Salvation [] Completed spiritual assessment [] Other: Impact on Illness or Injury [] Angry [] Fearful [] Anxious [] Often cries [] Exhaustion [] Unable to work [] Unable to attend restoration [] Unable to walk/stand [] Unable to read [] Unable to drive [] Unable to eat/drink [] Unable to sleep [] Unable to be with family [] Patient intubated [] Other: Summary Time spent with patient 15 min
--- NOTE | 2023-01-27 11:20 | P.CONIM_ITS ---
Providers/Reason For Consult Consulting Physician/Specialty*: Armando Andrea MD/ Cardiology Reason for Consult*: Unstable angina Requesting Physician: Dr Garcia Attending Physician: Daniel Garcia MD Primary Care Provider: SHELLEY Rodriguez History of Present Illness History of Present Illness Zaid Girard is a 57 year old male with no prior cardiac history presented to hospital with 1 week of on and off chest discomfort. According to patient whenever he does any significant physical exertion he is feeling substernal pressure. Goes into the arms. His troponins have not trended up. EKG showed not showing significant ischemic changes. He had stress test today that showed ischemia in left circumflex artery territory. Echo shows mildly reduced LV systolic function with EF of 45 to 50%. Review of Systems Narrative: CONSTITUTIONAL: No fever chills weight loss or gain or night sweats. [] HEENT: Normocephalic, atraumatic.[] RESPIRATORY: No cough, sputum, hemoptysis or wheezing.[] CARDIOVASCULAR: Chest pain GI: no nausea vomiting diarrhea. 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 [] MUSCULOSKELETAL: No knee or joint pain or rashes. [] Medications/Allergies Home Medications Medication Instructions Recorded Confirmed Last Taken Type ibuprofen 200 mg tablet (Advil) 200 mg PO Q6H PRN Pain 03/20/19 01/27/23 Unknown History ascorbate calcium (vitamin C) 500 500 mg PO DAILY 01/21/21 01/27/23 Unknown History mg tablet cholecalciferol (vitamin D3) 25 25 mcg PO DAILY 01/21/21 01/27/23 Unknown History mcg (1,000 unit) capsule melatonin 10 mg capsule 40 mg PO DAILY 01/21/21 01/27/23 Unknown History omega 3-pst-pqp-fish oil 300 1 cap PO DAILY 01/21/21 01/27/23 Unknown History mg-1,000 mg capsule zolpidem 10 mg tablet (Ambien) 10 mg PO DAILY 30 days #30 tabs 07/31/22 01/27/23 Unknown Rx cyclobenzaprine 10 mg tablet See Rx Instructions .Route 10/19/22 01/27/23 Unknown Rx .COMPLEX #90 tabs carvedilol 6.25 mg tablet 6.25 mg PO BID #60 tabs 01/25/23 01/27/23 Unknown Rx zinc acetate 50 mg (zinc) capsule 50 mg PO DAILY 01/27/23 01/27/23 Unknown History Allergies Allergy/AdvReac Type Severity Reaction Status Date / Time gabapentin Allergy I went Verified 01/27/23 08:49 crazy Current Medications Generic Name Dose Route Start Last Admin Trade Name Freq PRN Reason Stop Dose Admin Acetaminophen 650 mg 01/26/23 19:38 01/26/23 20:32 Acetaminophen 325 Mg Tablet PO 650 mg Q6H PRN Administration Mild/Mod Pain Or Temp >/= 101 Amlodipine Besylate 10 mg 01/27/23 09:00 01/27/23 09:54 Amlodipine 10 Mg Tablet PO 10 mg DAILY LURDES Administration Calcium Carbonate 1,000 mg 01/26/23 19:38 01/27/23 09:57 Calcium Carbonate 500 Mg Chew Tablet PO 1,000 mg Q4H PRN Administration DYSPEPSI Carvedilol 6.25 mg 01/26/23 19:38 01/27/23 09:54 Carvedilol 6.25 Mg Tablet PO 6.25 mg BID LURDES Administration Enoxaparin Sodium 40 mg 01/26/23 21:00 01/26/23 20:34 Enoxaparin 40 Mg/0.4 Ml Syringe SUBCUT 40 mg BEDTIME LURDES Administration Losartan Potassium 50 mg 01/26/23 19:38 01/27/23 09:54 Losartan 50 Mg Tablet PO 50 mg BID LURDES Administration Nitroglycerin 0.4 mg 01/26/23 15:24 01/26/23 16:15 Nitroglycerin 0.4 Mg Sublingual Tablet SUBLINGUAL 0.4 mg Q5M PRN Administration CHEST PAIN Zolpidem Tartrate 10 mg 01/26/23 19:38 01/26/23 20:32 Zolpidem 5 Mg Tablet PO 10 mg BEDTIME PRN Administration INSOMNIA PFSH Acute PFSH: Medical History Abnormal EKG Benign essential HTN Bilateral thoracic back pain Cervical (neck) region somatic dysfunction Degenerative arthritis of right shoulder region GERD (gastroesophageal reflux disease) HTN (hypertension) Hx of fracture of skull Intermittent chest pain Knee buckling Muscle spasm of shoulder region Rosacea Shortness of breath Sleep apnea Tendinopathy of right shoulder Surgical History History of surgery on arm History of tonsillectomy and adenoidectomy History of total left hip replacement x 2 Hx of hernia repair x 2 Family History Mother CAD (coronary artery disease) Stroke Hypertension Father CAD (coronary artery disease) [place] x 4, started in his 50's Diabetes Grandmother Dementia Grandfather Dementia Stroke Social History Smoking and tobacco/nicotine status: never used tobacco/nicotine Alcohol intake: current Alcohol intake frequency: 3 or more drinks per day Substance/Drug Use: never Lives independently: No Household members: spouse and children Marital status: Current occupational status: unemployed Do you think of yourself as: Straight/Heterosexual Current gender identity: Male Agree to transfusion: Yes Vitals/I&O/Wt Last Vital Signs Temp 97.0 F L 01/27/23 07:36 Pulse 99 01/27/23 08:17 Resp 20 H 01/27/23 07:36 BP 144/96 01/27/23 09:54 Pulse Ox 95 01/27/23 07:36 O2 Del Method Room Air 01/27/23 07:36 01/26/23 01/27/23 01/27/23 22:59 06:59 14:59 Intake Total 480 / 480 Output Total 0 / 0 50 / 50 Balance 0 / 0 -50 / -50 480 / 480 Weight last 48 hrs Weight 216 lb 6 oz Weight 217 lb Physical Exam Narrative: GENERAL: Patient is alert, awake and oriented x3. [] NECK: No jugular vein distension. [] HEENT: No cyanosis. No icterus. No pallor. [] HEART: Regular S1 and S2. No murmur, rub or gallop. [] LUNGS: Clear to auscultate bilaterally. [] CENTRAL NERVOUS SYSTEM: Grossly nonfocal. [] EXTREMITIES: Lower extremities with no edema bilaterally. Data 01/28/23 05:18 01/28/23 05:18 A&P Assessment and plan (1) Chest pain: Qualifiers: Chest pain type: unspecified Qualified Code(s): R07.9 - Chest pain, unspecified (2) HTN (hypertension): Qualifiers: Hypertension type: essential hypertension Qualified Code(s): I10 - Essential (primary) hypertension (3) Shortness of breath on exertion: Plan Patient has presented with typical worsening chest pain symptoms for the last 1 week. Any physical exertion worsens it. Skin findings are consistent with unstable angina. Stress test was performed that is showing ischemia in left circumflex artery territory. Plan for coronary angiogram with possible percutaneous coronary intervention. Risks and benefits of the procedure have been discussed. Patient understands them and wants to proceed. We will put him on aspirin. ECHO shows mildly reduced LV systolic function Thank you for involving us with care of this patient. We will continue to foll ow. Please call with questions. Consult Attestations Medical Necessity Statement: Care expected to cross 2 midnights. Coding Level of Care Code Acute Code for [facility] Fw Diagnoses Chest pain R07.9 Chest pain type: unspecified HTN (hypertension) I10 Hypertension type: essential hypertension Shortness of breath on exertion R06.02
[2023-01-27] MEDS: HYDROcodone-acetaminophen 5-325 mg Tablet 1 TAB PO (12:57)
--- NOTE | 2023-01-27 12:59 | PC.SOCIAL ---
IMM Update pg 2 of IMM not updated as patient is currently in observation status.
--- NOTE | 2023-01-27 15:42 | P.PN_ITS ---
Subjective Subjective: Patient with persistent chest pressure overnight. A CT-PE was obtained by cross coverage. Negative for acute findings. This morning, he reports mild pressure is still presents. Completed stress testing. Family bedside. Father reports history of two CABG surgeries. Patient denies cough, fevers, or chills. Vitals/I&O/Wt Last Vital Signs Temp 98.0 F 01/27/23 11:58 Pulse 104 H 01/27/23 11:58 Resp 22 H 01/27/23 11:58 BP 165/105 01/27/23 11:58 Pulse Ox 93 01/27/23 11:58 O2 Del Method Room Air 01/27/23 11:58 01/27/23 01/27/23 01/27/23 06:59 14:59 22:59 Intake Total 960 / 960 Output Total 50 / 50 Balance -50 / -50 960 / 960 Weight last 48 hrs Weight 98.146 kg Weight 98.43 kg Physical Exam Narrative: General: Patient is awake and alert. Very pleasant. Head: Normocephalic. Atraumatic. EOM intact. Neck: No JVD. Cardiovascular: RRR. No gallops. No murmurs. No peripheral edema. Lungs: Clear to auscultation, no use of accessory muscles, no crackles or wheezes. Skin: No jaundice. No rashes. Abdomen: Normal bowel sounds, abdomen soft and nontender. Extremities: No cyanosis or clubbing. Musculoskeletal:No swollen or erythematous joints. Neurological: Moves all 4 extremities. No myoclonus. Data 01/26/23 14:44 01/26/23 14:44 A&P Assessment and plan (1) Chest pain: Hx concerning for unstable angina MPS results pending Persistent chest pressure overnight, albiet mild, high risk factors are very high for coronary disease After careful consideration and discussion with patient and family, I feel he would benefit from cardiology evaluation regardless of stress test results as he may requires an invasive ischemic evaluation even if MPS is negative quality assurance monitor body Echocardiogram reviewed, LVEF reduced from prior; although acoustic windows poor Analgesics as needed Qualifiers: Chest pain type: unspecified Qualified Code(s): R07.9 - Chest pain, unspecified (2) HTN (hypertension): Continue home Norvasc Continue home Coreg Considering diuretic, hold off given NPO status Monitor blood pressure closely Qualifiers: Hypertension type: essential hypertension Qualified Code(s): I10 - Essential (primary) hypertension (3) Shortness of breath on exertion: CT-PE reviewed, lung parenchyma in healthy shape, no history of smoking Telemetry monitoring (4) Insomnia: Continue home Ambien Qualifiers: Insomnia type: primary Qualified Code(s): F51.01 - Primary insomnia (5) GERD (gastroesophageal reflux disease): Monitor TUMS PRN (6) Sleep apnea: Need to clarify if wears CPAP or not Plan DVT ppx: Lovenox Code: Full Attestations Medical Necessity Statement*: Patient requires ongoing hospitalization for telemetry monitoring, cardiology evaluation, and supportive care. Coding Level of Care Code Acute Code for [facility] Fwd Diagnoses Chest pain R07.9 Chest pain type: unspecified HTN (hypertension) I10 Hypertension type: essential hypertension Shortness of breath on exertion R06.02 Insomnia F51.01 Insomnia type: primary GERD (gastroesophageal reflux disease) K21.9 Sleep apnea G47.30
[2023-01-27] MEDS: ketorolac 30 mg/mL INJ 15 MG IVP (16:14)
--- NOTE | 2023-01-27 19:38 | NMCV_ITS ---
NM tina perf SPECT r/s* [id number] Zaid Girard Age: 57 Gender: M : 1965 Exam Date: 01/27/2023 07:10 Ordering Phys: Daniel Garcia MD Technologist: JAIME Brar Exam Location: [facility] Indications: CHEST PAIN STRESS TEST Please see separate stress test report in [facility] for full findings IMAGE PROTOCOL Rest/Stress 1 Lexiscan Day Radiopharmaceutical Dose (mCi) Administration Site Administered by Rest: Tc-99m 10.7 IV JAIME Fleming Sestamibi Stress:Tc-99m 33.0 IV JAIME Fleming Sestamibi Rest: 27-Jan-2023 60 Discovery 630 Stress: 27-Jan-2023 30 Discovery 630 0.4mg Lexiscan. Images obtained in supine and prone position. SPECT RESULTS Technical Quality: Excellent Raw Data Analysis: Normal Image Corrections: No attenuation or motion correction applied Summed Stress Score: 4 Summed Rest Score: 3 Summed Difference Score: 2 PERFUSION FINDINGS Small area of moderately decreased uptake in the apical lateral segment with minimally decreased tracer uptake in the mid anterolateral l and mid inferolateral segments. Some reversibility was noted in the mid montez lateral and apical lateral segments FUNCTIONAL RESULTS (calculated via Gated SPECT) Stress Image LV EF (%): 60 Stress EDV (mL):83 TID: 0.77 Stress ESV (mL):33 FUNCTIONAL FINDINGS: Segmental wall motion analysis revealing no gross wall motion abnormalities IMPRESSIONS 1. Myocardial perfusion imaging revealing a small area of reversible defect in the apical lateral region and in the mid anterolateral region suggesting ischemia in the distribution of the left circumflex artery. 2. Normal LV ejection fraction of 60%. 3. LV wall motion analysis revealing no gross wall motion abnormalities. 4. Normal LV volume, end-systolic volume of [address] Jayshree Germain MD FAC (Electronically Signed) Final Date: 27 January 2023 18:23 S
[2023-01-27] MEDS: acetaminophen 325 mg Tablet 650 MG PO (21:42)
[2023-01-27] MEDS: enoxaparin 40 mg/0.4 mL Syringe SUBCUT (21:42)
[2023-01-28] VITALS (98 sets, daily range): BP systolic 110–167; BP diastolic 77–120; PULSE 72–92; RESP 10–42; TEMP 36.6; O2SAT 84–97
[2023-01-28] MEDS: aspirin 325 mg Tablet PO (06:07)
[2023-01-28] MEDS: sodium chloride 0.9% 1,000 ML 50 ML IV (06:07)
[2023-01-28] MEDS: diphenhydrAMINE 50 mg Capsule PO (06:07)
[2023-01-28 06:12] LABS: Basophils # 0.1 10^3/uL (0.0-0.1); Basophils % 0.8 %; Eosinophils # 0.1 10^3/uL (0.0-0.8); Eosinophils % 2.1 %; Hematocrit 51.9 % (37-53); Lymphocytes # 1.2 10^3/uL (0.8-4.8); Lymphocytes % 18.7 %; Mean Corpuscular HGB Conc 32.8 g/dL (30-55); Mean Corpuscular Hemoglobin 30.9 pg (27-33); Mean Corpuscular Volume 94.4 fl (82-101); Mean Platelet Volume 10.1 fL (7.4-10.4); Monocytes # 0.5 10^3/uL (0.2-0.9); Monocytes % 7.8 %; Neutrophils # 4.44 10^3/uL (1.8-7.7); Neutrophils % 70.3 %; Nucleated Red Blood Cells % 0 %; Platelet Count 329 10^3/cmm (157-399); Red Cell Distribution Width 12.5 % (12.1-15.1); White Blood Count 6.31 10^3/uL (3.29-11.43)
[2023-01-28 06:32] LABS: Alanine Aminotransferase 64 U/L (0-41); Albumin Level 4.3 g/dL (3.5-5.2); Alkaline Phosphatase 65 U/L (40-130); Aspartate Amino Transferase 27 U/L (0-40); Blood Urea Nitrogen 15 mg/dL (6-20); Calcium 9.5 mg/dL (8.5-10.5); Carbon Dioxide 22 mmol/L (22-29); Chloride 105 mmol/L (98-107); Globulin 2.4 g/dL (1.3-4.6); Glomerular Filtration Rate 69.2 mL/min (90-130); Glucose 120 mg/dL (65-115); Magnesium 2.5 mg/dL (1.7-2.3); Osmolality Calculated 288 mOsm/kg (285-295); Phosphorus 3.9 mg/dL (2.5-4.5); Sodium 138 mmol/L (136-145); Total Bilirubin 0.6 mg/dL (0.15-1.2); Total Protein 6.7 g/dL (6.6-8.7)
--- NOTE | 2023-01-28 07:00 | XACV_ITS ---
Exam Room: [facility] Ht: 173 cm Wt: 98 kg BSA: 2.20 m2 Gender: Male : 1965 Any Known Allergies: Other Exam Priority: Routine Indication(s): - Unstable angina - Abnormal stress perfusion study Procedure(s): Procedure Description: Diagnostic procedure Procedure Description: Left Heart Catheterization Procedure Description: Left ventriculography Procedure Description: Miscellaneous Procedure Description: ACT Procedure Description: Coronary Angiography Diagnostic Cath Status: Urgent Diagnostic Findings * Indication: Worsening angina/abnormal stress test. * Left Main has no significant disease. * Circumflex has no significant disease. * Right Coronary Artery has no significant disease. * Mid Left Anterior Descending: minimal 30% stenosis, JF: 3 flow. * Coronary angiography shows right dominance. Conclusions 1. Non-obstructive coronary artery disease.. 2. Normal left ventricular systolic function. Ejection fraction of 55%. Recommendations * Aggressive risk factor modification. * Outpatient cardiology follow up in 4 weeks. Interventional RX Recommendation: medical therapy and/or counseling Diagnostic RX Recommendation: medical therapy and/or counseling Anticoagulation: Heparin Ventriculography Ejection Fraction: 55.0 % Pressures Phase:Rest AO : 135 / 79 ( 103 ) @ 8:42:00 AM 135 / 79 ( 102 ) @ 8:42:00 AM 131 / 76 ( 98 ) @ 8:42:00 AM LV : 147 / -22 / 6 @ 8:40:00 AM 133 / -23 / -1 @ 8:41:00 AM 131 / -17 / 8 @ 8:42:00 AM 132 / -16 / 4 @ 8:42:00 AM Valves Phase:DefaultPhase AV : 0.0 @ 9:04:00 AM 0.0 @ 9:04:00 AM Clinical Evaluation EBL: 5mL-10mL Procedural Details Current Diagnosis : Unstable angina. Procedure Consent Obtained. Pre-Procedure Time Out. Identified patient by full name and date of as verbalized by the patient/guarantor. Does the consent match the physician's order: Yes. Accurate & Complete Informed Consent: Yes. Inpatient/Outpatient History & Physical on Chart: Yes. If H&P is completed, is and addenduem needed: No; If yes, is the addendum complete: N/A. Visualize and Verify Site with Patient/Guarantor: N/A. Relevant Radiology Images available: N/A. The risks, benefits, and alternatives of sedation and/or procedure were discussed by physician. The patient agrees to continue. Procedure started. [place] Clinical Fraility Score: 3: Managing Well. Medical Services Coordinator Indications: Worsening Angina; Unstable Angina. Chest Pain Symptom Assessment: Typical Angina Symptoms. Cardiovascular Instability: No, stable. Correct patient, site and procedure confirmed by cath team. Current diagnosis: Unstable angina. PERRLA. 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 Lungs clear x 5 lobes. IV Site on Arrival: 20 gauge in the left anticubital. IV Fluids: 0.9% NaCl at KVO. 200 mL infused prior to coreroom foundry laborer. Pre Procedural Pulses: bilateral posterior tibial was Doppled. Pre Procedural Pulses: bilateral dorsalis pedis was Doppled. Pre Procedural Pulses: bilateral radial was 3+. Oxygen started at 3liters/min via nasal canula. right radial was prepped with chloroprep then draped in the usual sterile fashion. right groin was prepped with chloroprep then draped in the usual sterile fashion. Physician notified. Baseline sample Acquired. HR: 71 BPM. Family updated by MD prior to the start of the procedure. Equipment: 5F - Radial. Cardiac Cath Pack. ACIST Manifold Kit Model BT 2000. Heparinized Saline (2 units/mL), 1000 mL bag. Equipment: 5F - Femoral. Equipment: 6F - Radial. Equipment: 6F - Femoral. Physician arrived. Physician scrubbed in. Immediate Pre-Procedure Time Out. Correct Patient: Yes; Correct Procedure: Yes; Correct Site: Yes; Correct Patient Position: Yes; Correct Supplies: Yes; Dried Flammable Prep: Yes; Blood Products Available: N/A;. Lidocaine 1% infiltrated to the right radial. Arterial access obtained. A 5 qatari TIG catheter in over wire. Multiple views taken of left coronary artery. Catheter redirected to the RCA. Unable to cannulate. Removed over the wire. A 5 qatari JR4 catheter in over wire. Unable to cannulate the rca. Catheter removed over the wire. A TR Band was successful obtaining hemostatsis at the Right Radial artery insertion site. MD switching to femoral access. Lidocaine 1% infiltrated to the right groin. Arterial access obtained with micropuncture set. Unable to advance wire. Wire and needle removed. MD holding pressure until hemostatis obtained. Arterial access obtained with micropuncture set. A 5 qatari JR4 catheter in over wire. Multiple views taken of right coronary artery. Catheter removed over the exchange wire. A 5 qatari Angled Pig catheter in over wire. EDP Sample taken: LV 147/-23,6; HR: 69 BPM; SpO2: 90%. LV gram performed in CAMPOS @ 10 mL/second for a total of 30 mL. Patient EF: Normal. EDP Sample taken: LV 133/-24,-2; HR: 88 BPM; SpO2: 96%. EDP Sample taken: LV 131/-18,8; HR: 85 BPM; SpO2: 94%. Pullback taken: LV 132/-17,4; AO 135/79(103); Mean: , Peak to Peak: 0mmHg, SEP: ; HR: 82 BPM; SpO2: 93%. Catheter removed over the exchange wire. A Right femoral angiogram was performed to determine safe placement of closure device. ACT drawn. Results 289 seconds. Therapeutic limits - pre-heparin administration 90-150 seconds and monitoring heparin during a vascular procedure >250 seconds. Physician scrubbed out. Physician review of cine films. A Suture was successful obtaining hemostatsis at the Right Femoral artery insertion site. Sheath(s) sutured into position with 2-0 silk and sterile 4x4's and Op-site applied over the site. No oozing or signs and symptoms of hematoma noted. Arterial sheath flushed and connected to tranducer and pressure bag with heparinized saline. Post Procedure: Pulses reassessed and unchanged. PERRLA. 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 No VTE prophylaxis required. Medication waste: Lidocaine- 1 ml, Nitro- 49.8 mg, Heparin- 4,000 units, Versed- 1 mg, Fentanyl- 75 mcg. Total IV fluids: 50 mL. Fluoro: 6:09. Contrast type used: Omnipaque 300 mg/mL, 150 mL bottle. [id number]. Post-op diagnosis: Non Obstuctive CAD; Normal LV function. Complications: None. Estimated blood loss: 5mL-10mL. Responsiveness - Normal response to verbal stimuli; alert and oriented, PERRLA. Airway - Unaffected, no intervention required; spontaneous ventilation. Circulation: W/N/L, pulses unchanged. Nausea/Vomiting: No. Procedure completed. Vital chart was stopped. Patient transferred by bed to ICU. Access Site Site: Right Radial artery Sheath Size: 6 Fr Hemostasis Method: TR Band Hemostasis Success: Successful Site: Right Femoral artery Sheath Size: 6 Fr Hemostasis Method: Suture Hemostasis Success: Successful Procedure Medications Start: 8:11 AM Stop: 8:11 AM Medication: Versed Amount: 1 mg Route: I.V. Start: 8:11 AM Stop: 8:11 AM Medication: Fentanyl Amount: 50 mcg Route: I.V. Start: 8:14 AM Stop: 8:14 AM Medication: Versed Amount: 1 mg Route: I.V. Start: 8:14 AM Stop: 8:14 AM Medication: Fentanyl Amount: 50 mcg Route: I.V. Start: 8:15 AM Stop: 8:15 AM Medication: Nitrogylcerin Amount: 200 mcg Route: I.A. Start: 8:16 AM Stop: 8:16 AM Medication: Heparin Amount: 5000 units Route: I.V. Start: 8:32 AM Stop: 8:32 AM Medication: Versed 1 mg and Fentanyl 25 mcg Amount: 1 Route: I.V. I, the attending physician, have reviewed and verified all procedure medications. Yes, all medications given per verbal order History/Risk Factors Hypertension: Yes Dyslipidemia: No Peripheral Arterial Disease (PAD): No Myocardial Infarction (PR): No Obesity: No Renal Disease: No Tobacco Use: Never Prior Interventions PCI: No CABG: No Valve Surgery: No Report Signatures Finalized by Armando Andrea MD on 01/28/2023 10:58 AM
--- NOTE | 2023-01-28 07:53 | W.PM.OPSUD ---
Surgery/Procedure H&P Update DATE OF PROCEDURE: January 28, 2023 DATE H&P PERFORMED: 01/28/23 H&P UPDATE INFORMATION: I have reviewed H&P completed within last 30 days, I have examined patient prior to procedure and No changes to prior documentation PREOP DIAGNOSIS: Unstable angina PRIMARY INDICATION FOR PROCEDURE: Unstable angina PLANNED PROCEDURE: Operation Date: 01/28/23 07:00 Proposed Procedures p Cardiac Catheterization(Left) - Armando Andrea M.D Possible percutaneous coronary intervention PATIENT REASSESSED PRIOR TO SEDATION, WITH NO CHANGE NOTED: Yes PHYSICAL EXAM: alert, oriented x 3, clear to auscultation bilaterally and regular rate & rhythm AIRWAY EVAL/ANESTHESIA PLAN: normal airway, ASA III, Local Anesthesia, Risks, benefits & alternatives of sedation and/or procedure discussed and Patient agrees to continue as planned ADDITIONAL INFORMATION: Moderate sedation
--- NOTE | 2023-01-28 09:09 | P.PN_ITS ---
Subjective Subjective: Patient is doing well. No chest pain. Occasional chest Vitals/I&O/Wt Last Vital Signs Temp 97.9 F 01/28/23 03:58 Pulse 84 01/28/23 06:00 Resp 16 01/28/23 03:58 BP 133/84 01/28/23 03:58 Pulse Ox 95 01/28/23 03:58 O2 Del Method Room Air 01/28/23 03:58 01/27/23 01/28/23 01/28/23 22:59 06:59 14:59 Intake Total 480 / 1440 Output Total 50 / 50 150 / 200 Balance 430 / 1390 -150 / 1240 Weight last 48 hrs Weight 224 lb 9 oz Weight 216 lb 6 oz Weight 217 lb Physical Exam Narrative: GENERAL: Patient is alert, awake and oriented x3. [] NECK: No jugular vein distension. [] HEENT: No cyanosis. No icterus. No pallor. [] HEART: Regular S1 and S2. No murmur, rub or gallop. [] LUNGS: Clear to auscultate bilaterally. [] CENTRAL NERVOUS SYSTEM: Grossly nonfocal. [] EXTREMITIES: Lower extremities with no edema bilaterally. Data 01/28/23 05:18 01/28/23 05:18 A&P Assessment and plan (1) Chest pain: Qualifiers: Chest pain type: unspecified Qualified Code(s): R07.9 - Chest pain, unspecified (2) HTN (hypertension): Qualifiers: Hypertension type: essential hypertension Qualified Code(s): I10 - Essential (primary) hypertension (3) Shortness of breath on exertion: Plan Coronary angiogram does not show significant CAD. Mid LAD has mild to 20-30% stenosis. LV gram shows normal LV systolic function. Continue aspirin. Can start atorvastatin at time of discharge. Beta leah. Can follow with cardiology as out patient. Thank you for involving us with care of this patient. Please call with questions. Attestations Medical Necessity Statement*: Care expected to cross 2 midinights. Coding Level of Care Code Acute Code for [facility] Fwd Diagnoses Chest pain R07.9 Chest pain type: unspecified HTN (hypertension) I10 Hypertension type: essential hypertension Shortness of breath on exertion R06.02
[2023-01-28] MEDS: losartan 50 mg Tablet PO ×2 (10:35→18:17)
[2023-01-28] MEDS: carvedilol 6.25 mg Tablet PO ×2 (10:37→18:17)
[2023-01-28] MEDS: amlodipine 10 mg Tablet PO (10:37)
[2023-01-28 11:17] LABS: Partial Thromboplastin Time 46.1 SECONDS (23.9-36.7)
--- NOTE | 2023-01-28 14:47 | PM.DCS ---
Discharge Providers Date of Admission: 01/26/23 19:17 Date of Discharge: January 28, 2023 Attending Provider at Admission: Daniel Garcia MD Attending Provider at Discharge: Daniel Garcia MD Consults: Cardiology Primary Care Provider: SHELLEY Rodriguez Diagnoses at Discharge Discharge Diagnosis (1) Chest pain: Status: Acute Qualifiers: Chest pain type: unspecified Qualified Code(s): R07.9 - Chest pain, unspecified (2) HTN (hypertension): Status: Acute Qualifiers: Hypertension type: essential hypertension Qualified Code(s): I10 - Essential (primary) hypertension (3) Shortness of breath on exertion: Status: Acute Reason for Visit Reason for Visit: chest pressure Hospital Course Hospital Course Zaid Girard is a 57 year old male with a past medical history significant for GERD, hypertension, skull fracture, and sleep apnea who presents emergency department chest pressure. Acute coronary syndrome was considered but ruled out with serial troponin, EKGs, and telemetry monitoring. Echocardiogram showed slightly reduced left ventricular ejection fraction without regional wall motion abnormalities. Pulmonary embolism was considered but ruled out with CT-PE which also did not reveal any culprit aneurysms. Due to typical nature of his chest pain and risk factors, cardiology was consulted. He underwent cardiac cath which revealed non-obstructive coronary artery disease with recommendations for medication management. Patient did not require PCI. Symptoms improved. Patient's home medications regimen adjusted as per discharged medication reconciliation below. Patient discharged to home in stable condition. He is to keep a home BP log and follow up with outpatient providers for further care. Physical Exam Narrative: General: Patient is awake and alert.? Laying in bed. Conversational. Head:? Normocephalic. Atraumatic. EOM intact. Neck: No JVD. Cardiovascular: RRR. No gallops. No murmurs. No peripheral edema. Lungs: Clear to auscultation, no use of accessory muscles, no crackles or wheezes. Skin: No jaundice. No rashes. Abdomen: Normal bowel sounds, abdomen soft and nontender. Extremities: No cyanosis or clubbing. Musculoskeletal:No swollen or erythematous joints. Neurological: Moves all 4 extremities. No myoclonus. Discharge Data Studies Completed and Pending Completed Studies During Hospitalization Category Date Time Status CTA chest [CT angio chest [id number]] Routine Cat Scan 01/26/23 23:01 Completed IT PROGRAM MANAGER request for service Routine Exams 01/28/23 07:00 Completed Sestamibi Stress Test Request Routine Exams 01/26/23 19:38 Draft XR chest 1V portable [id number] Stat Exams 01/26/23 14:31 Completed NM tina perf SPECT r/s* [id number] Routine Nuc Med 01/27/23 19:38 Completed CV. echo wo/w contrast [id number] Stat Ultrasound 01/26/23 17:36 Completed Pending at discharge Category Date Time Status Sestamibi Stress Test Request Routine Exams 01/26/23 19:38 Ordered Radiology Impressions Chest CTA 01/26/23 23:01 IMPRESSION: 1. The exam is negative for PE or focal pneumonia. 2. IVC filter, cholelithiasis, hepatic steatosis. Laboratory Results WBC 6.31 10^3/uL (3.29-11.43) 01/28/23 05:18 RBC 5.50 10^6/uL (3.85-5.65) 01/28/23 05:18 Hgb 17.00 g/dL (11.27-16.99) H 01/28/23 05:18 Hct 51.9 % (37-53) 01/28/23 05:18 MCV 94.4 fl (82-101) 01/28/23 05:18 MCH 30.9 pg (27-33) 01/28/23 05:18 MCHC 32.8 g/dL (30-55) 01/28/23 05:18 RDW 12.5 % (12.1-15.1) 01/28/23 05:18 Plt Count 329 10^3/cmm (157-399) 01/28/23 05:18 MPV 10.1 fL (7.4-10.4) 01/28/23 05:18 Neut % (Auto) 70.3 % 01/28/23 05:18 Lymph % (Auto) 18.7 % 01/28/23 05:18 [place] % (Auto) 7.8 % 01/28/23 05:18 Eos % (Auto) 2.1 % 01/28/23 05:18 Baso % (Auto) 0.8 % 01/28/23 05:18 Neut # (Auto) 4.44 10^3/uL (1.8-7.7) 01/28/23 05:18 Lymph # (Auto) 1.2 10^3/uL (0.8-4.8) 01/28/23 05:18 [place] # (Auto) 0.5 10^3/uL (0.2-0.9) 01/28/23 05:18 Eos # (Auto) 0.1 10^3/uL (0.0-0.8) 01/28/23 05:18 Baso # (Auto) 0.1 10^3/uL (0.0-0.1) 01/28/23 05:18 Nucleated RBC % (auto) 0 % 01/28/23 05:18 Nucleated RBCs # 0.0 /100WBC 01/28/23 05:18 APTT 46.1 SECONDS (23.9-36.7) H 01/28/23 10:55 D-Dimer 0.30 ug/mLFEU (0-0.59) 01/26/23 14:44 Sodium 138 mmol/L (136-145) 01/28/23 05:18 Potassium 4.0 mmol/L (3.5-5.1) 01/28/23 05:18 Chloride 105 mmol/L (98-107) 01/28/23 05:18 Carbon Dioxide 22 mmol/L (22-29) 01/28/23 05:18 Anion Gap 15.0 (5-19) 01/28/23 05:18 BUN 15 mg/dL (6-20) 01/28/23 05:18 Creatinine 1.1 mg/dL (0.7-1.2) 01/28/23 05:18 GFR Calculation 69.2 mL/min (90-130) L 01/28/23 05:18 Glucose 120 mg/dL (65-115) H 01/28/23 05:18 POC Glucose 109 mg/dL (70-110) 01/26/23 22:29 Estimat Average Glucose 128 01/26/23 14:44 Hemoglobin A1c 6.1 % (4.0-6.0) H 01/26/23 14:44 Calculated Osmolality 288 mOsm/kg (285-295) 01/28/23 05:18 Calcium 9.5 mg/dL (8.5-10.5) 01/28/23 05:18 Phosphorus 3.9 mg/dL (2.5-4.5) 01/28/23 05:18 Magnesium 2.5 mg/dL (1.7-2.3) H 01/28/23 05:18 Total Bilirubin 0.6 mg/dL (0.15-1.2) 01/28/23 05:18 AST 27 U/L (0-40) 01/28/23 05:18 ALT 64 U/L (0-41) H 01/28/23 05:18 Alkaline Phosphatase 65 U/L (40-130) 01/28/23 05:18 Troponin T Baseline 8 ng/L (0-15) 01/26/23 14:44 Troponin T 120 Minute 10.01 ng/L (0-15) 01/26/23 16:28 Delta Troponin T 2.01 ABS# (0-10) 01/26/23 16:28 Troponin T Hi Sens 6Hr 9.46 ng/L (0-15) 01/27/23 00:30 Troponin T Hi Sens 6Hr Delta 1.46 ng/L (0-12) 01/27/23 00:30 NT-Pro-B Natriuret Pep < 36 pg/mL (0-125) 01/26/23 14:44 Total Protein 6.7 g/dL (6.6-8.7) 01/28/23 05:18 Albumin 4.3 g/dL (3.5-5.2) 01/28/23 05:18 Globulin 2.4 g/dL (1.3-4.6) 01/28/23 05:18 Triglycerides 288 mg/dL (0-150) H 01/26/23 14:44 Cholesterol 201 mg/dL (0-200) H 01/26/23 14:44 LDL Cholesterol, Calc 99 mg/dL (50-129) 01/26/23 14:44 HDL Cholesterol 44 mg/dL (60-100) L 01/26/23 14:44 LDL/HDL Ratio 2.25 RATIO (0.00-3.22) 01/26/23 14:44 Cholesterol/HDL Ratio 4.57 mg/dL (1.0-5.00) 01/26/23 14:44 Vitals Last Vital Signs Temp 97.9 F 01/28/23 03:58 Pulse 86 01/28/23 12:30 Resp 22 H 01/28/23 12:30 BP 157/77 01/28/23 12:30 Pulse Ox 95 01/28/23 12:30 O2 Del Method Room Air 01/28/23 03:58 Discharge Plan Discharge Patient Disposition: Home Condition: Stable Prescriptions: New atorvastatin 40 mg tablet 40 mg PO QPM Qty: 90 3RF chlorthalidone 25 mg tablet 25 mg PO DAILY Qty: 30 1RF aspirin 81 mg capsule 81 mg PO DAILY Qty: 90 3RF Continued ibuprofen [Advil] 200 mg tablet 200 mg PO Q6H PRN (Reason: Pain) melatonin 10 mg capsule 40 mg PO DAILY ascorbate calcium (vitamin C) 500 mg tablet 500 mg PO DAILY cholecalciferol (vitamin D3) 25 mcg (1,000 unit) capsule 25 mcg PO DAILY omega 4-ddc-evt-fish oil 300-1,000 mg capsule 1 cap PO DAILY zolpidem [Ambien] 10 mg tablet 10 mg PO DAILY 30 Days Qty: 30 5RF cyclobenzaprine 10 mg tablet See Rx Instructions .ROUTE .COMPLEX Qty: 90 0RF Dose Instruction: TAKE 1 TABLET BY MOUTH ONCE DAILY NEEDED FOR MUSCLE SPASM Rx Instructions: TAKE 1 TABLET BY MOUTH ONCE DAILY NEEDED FOR MUSCLE SPASM carvedilol 6.25 mg tablet 6.25 mg PO BID Qty: 60 3RF Rx Instructions: must administer with a meal/food zinc acetate 50 mg (zinc) Capsule 50 mg PO DAILY Discharge Orders: Discharge Order (Routine); Ordered 01/28/23 Ordered By: Daniel Garcia Referrals: Dominick Garcia FNP [Primary Care Provider] - 4-7 days Olga Petty FNP [Nurse Practitioner] - 2 weeks Discharge Diet: Advance as tolerated and Usual diet Discharge Activity: Resume usual activity and Increase activity as tolerated Patient Instructions: Opioid Safety Activity Restrictions/Additional Instructions: 1. Increase activity as tolerated. 2. Keep home blood pressure log. Bring log to appointment with PCP and cardiology for review. 3. Take medications as prescribed. 4. No driving or operating heavy machinery for 24 hours after cardiac catheterization. Discharge Attestations Time Spent in Discharge Care*: greater than 30 min Quality Metrics Clinical Quality Measures [ No reported AMI, CVA or VTE this stay] Coding Level of Care Code Acute Code for [facility] Fwd Diagnoses Chest pain R07.9 Chest pain type: unspecified HTN (hypertension) I10 Hypertension type: essential hypertension Shortness of breath on exertion R06.02
== END 2023-01-28 19:00 | disposition home or self-care (01) ==
LOC: ER 17:01 → MEDSURG 19:17 → ICU 01-28 09:05
PROVIDERS: Emergency Medicine; Internal Medicine; Admitting Provider Internal Medicine; Emergency Provider Physician Assistant; PCP Registered Nurse; Visit Provider Internal Medicine
DX: I25.10 Atherosclerotic heart disease of native coronary artery without angina pectoris (principal); R07.89 Other chest pain; I10 Essential (primary) hypertension; R06.02 Shortness of breath; K21.9 Gastro-esophageal reflux disease without esophagitis; G47.30 Sleep apnea, unspecified; Z87.81 Personal history of (healed) traumatic fracture; F51.01 Primary insomnia; Z82.49 Family history of ischemic heart disease and other diseases of the circulatory system
CPT/HCPCS: 36415; 36416; 71045; 71275; 78452; 80053; 80061; 82962; 83036; 83735; 83880; 84100; 84484; 85025; 85347; 85378; 85730; 93005; 93017; 93458; 96360; 96365; 96372; 96375; 99152; 99153; 99285; A9500; C1769; C1887; C1894; C8929; G0378; J1644; J1650; J1885; J2250; J2785; J3010; J3490; J7030; Q0163; Q9956; Q9967

== ENCOUNTER → 2023-02-04 09:43 | Outpatient (BNVA) | payer MEDICARE, SELFPAY | PROVIDERS: PCP Registered Nurse; Visit Provider Nurse Practitioner Family | DX: I25.10 Atherosclerotic heart disease of native coronary artery without angina pectoris (principal); I10 Essential (primary) hypertension | CPT/HCPCS: 36415; 80048; 99214 ==

== ENCOUNTER → 2023-02-16 15:14 | Outpatient (BNVA) | payer MEDICARE, SELFPAY | PROVIDERS: PCP Registered Nurse; Visit Provider Nurse Practitioner Family | DX: I10 Essential (primary) hypertension (principal) | CPT/HCPCS: 99213 ==

== ENCOUNTER → 2023-08-03 15:06 | Outpatient (BNVA) | payer MEDICARE, SELFPAY | PROVIDERS: PCP Registered Nurse; Visit Provider Internal Medicine | DX: I10 Essential (primary) hypertension (principal); R55 Syncope and collapse | CPT/HCPCS: 99214 ==

== ENCOUNTER → 2023-08-11 08:34 | Outpatient (BNVA) | payer MEDICARE, SELFPAY | PROVIDERS: PCP Registered Nurse; Visit Provider Registered Nurse | DX: I10 Essential (primary) hypertension (principal); Z12.5 Encounter for screening for malignant neoplasm of prostate; R35.1 Nocturia | CPT/HCPCS: 80053; 80061; G0103 ==

== ENCOUNTER → 2024-02-23 09:27 | Outpatient (BNVA) | payer MEDICARE, SELFPAY | PROVIDERS: PCP Registered Nurse; Visit Provider Internal Medicine | DX: I10 Essential (primary) hypertension (principal); K21.9 Gastro-esophageal reflux disease without esophagitis; M19.011 Primary osteoarthritis, right shoulder; M67.911 Unspecified disorder of synovium and tendon, right shoulder | CPT/HCPCS: 99214 ==

== ENCOUNTER → 2024-07-17 11:43 | Outpatient (BNVA) | payer MEDICARE, SELFPAY | PROVIDERS: PCP Registered Nurse; Visit Provider Registered Nurse | DX: I10 Essential (primary) hypertension (principal) | CPT/HCPCS: 80053; 80061; 85025 ==

== ENCOUNTER 2024-07-26 15:03 | Outpatient (CLI) | payer MEDICARE, SELFPAY ==
--- NOTE | 2024-07-26 15:15 | US_ITS ---
WS: [id number] ULTRASOUND SOFT TISSUES anterior RIGHT lower thorax. HISTORY: D17.1 - Benign lipomatous neoplasm of skin and subcutaneo... COMPARISON: None. TECHNIQUE: 2-D and color Doppler imaging is submitted. Ultrasound directed to the RIGHT lower thorax. Lipomatous mass displacing the adjacent fascial planes and muscle planes. Elliptical mass without increased vascularity measures 5.9 x 4.9 x 2.1 cm. This is most consistent with a lipoma. US/US soft tissue/extremity 92472 IMPRESSION: Ovoid mass most consistent with a lipoma along the anterior RIGHT lower thorax.
== END 2024-07-26 15:04 | disposition home or self-care (01) ==
LOC: RAD 15:05
PROVIDERS: PCP Registered Nurse; Visit Provider Registered Nurse
DX: D17.1 Benign lipomatous neoplasm of skin and subcutaneous tissue of trunk (principal)
CPT/HCPCS: 76882

== ENCOUNTER → 2024-08-02 12:08 | Outpatient (BNVA) | payer MEDICARE, SELFPAY | PROVIDERS: PCP Registered Nurse; Visit Provider Surgery | DX: D17.9 Benign lipomatous neoplasm, unspecified (principal) | CPT/HCPCS: 99204 ==

== ENCOUNTER 2024-08-21 07:16 | Day surgery (SDC) | payer MEDICARE, SELFPAY ==
[2024-08-21] VITALS (10 sets, daily range): BP systolic 111–150; BP diastolic 74–95; PULSE 82–94; RESP 16–21; TEMP 36.1–36.3; O2SAT 94–100; BMI 33.4
--- NOTE | 2024-08-21 07:45 | P.HPUD_ITS ---
Surgery/Procedure H&P Update DATE OF PROCEDURE: August 21, 2024 DATE H&P PERFORMED: 08/02/24 H&P UPDATE INFORMATION: I have reviewed H&P completed within last 30 days, I have examined patient prior to procedure, No changes to prior documentation, H&P is in [facility] EMR on date indicated and Risks and benefits of the procedure reviewed PLANNED PROCEDURE: Operation Date: 08/21/24 09:00 Proposed Procedures p Excision of Right Abdominal wall Lesion 46765 D17.9(Right) - David Cruz MD
[2024-08-21] MEDS: sodium chloride 0.9% 1,000 ML 30 ML IV (07:55)
--- NOTE | 2024-08-21 08:29 | ANES.PREANE2 ---
Pre-Anesthetic Assessment Height/Weight: Height 5 ft 8 in Weight 220 lb Temp Pulse Resp BP Pulse Ox O2 Del Method 97.4 F L 94 16 150/95 96 Room Air 08/21/24 07:33 08/21/24 07:33 08/21/24 07:33 08/21/24 07:33 08/21/24 07:33 08/21/24 07:33 Preop Diagnosis: abdominal wall mass Operation Date: 08/21/24 09:00 Proposed Procedures p Excision of Right Abdominal wall Lesion 03902 D17.9(Right) - David Cruz MD Last intake: Intake Last Liquid Date 08/20/24 Last Liquid Time 21:00 Last Solid Date 08/20/24 Last Solid Time 18:00 Social No alcohol and No tobacco Exam alert, oriented x 3, clear to auscultation bilaterally and regular rate & rhythm Airway Submandibular: within normal limits Cervical ROM: within normal limits Mallampati: Class III Dentition: full Anesthetic Plan ASA status: 3 Anesthesia: General Other: No prior issues with anesthesia NPO since yesterday evening History of hypertension on amlodipine, clonidine and carvedilol Patient has a CAD history, prior echo showing EF of 45 to 50%. On and off angina. Cardiac cath performed in 2022 which did not reveal any stenosis. History of GERD Patient does note getting nerve pain throughout his body at different times. He goes to a massage therapist at least a few times a month which helps his symptoms. Currently has pain around mass site Recent labs reviewed and acceptable for procedure Plan for general anesthesia Medications/Allergies Home Medications ?Medication ?Instructions ?Recorded ?Confirmed ?Last Taken ?Type ascorbate calcium (vitamin C) 500 500 mg PO DAILY 01/21/21 08/18/24 08/20/24 History mg tablet cholecalciferol (vitamin D3) 25 25 mcg PO DAILY 01/21/21 08/18/24 08/20/24 History mcg (1,000 unit) capsule melatonin 10 mg capsule 40 mg PO DAILY 01/21/21 08/18/24 08/20/24 History omega 5-xvo-mfm-fish oil 300 1 cap PO DAILY 01/21/21 08/18/24 08/20/24 History mg-1,000 mg capsule zinc acetate 50 mg (zinc) capsule 50 mg PO DAILY 01/27/23 08/18/24 08/20/24 History clonidine HCl 0.1 mg tablet See Rx Instructions .Route 02/18/24 08/18/24 08/20/24 Rx .COMPLEX #30 tabs carvedilol 25 mg tablet 25 mg PO BID #90 tabs 02/23/24 08/18/24 08/21/24 Rx pantoprazole 40 mg tablet,delayed See Rx Instructions .Route 07/07/24 08/18/24 08/20/24 Rx release .COMPLEX #90 tabs amlodipine 5 mg tablet 5 mg PO DAILY #90 tabs 07/17/24 08/18/24 08/20/24 Rx chlorthalidone 25 mg tablet See Rx Instructions .Route 07/17/24 08/18/24 08/20/24 Rx .COMPLEX 90 days #90 tabs cyclobenzaprine 10 mg tablet See Rx Instructions .Route 07/18/24 08/18/24 08/20/24 Rx .COMPLEX #90 tabs zolpidem 10 mg tablet (Ambien) 10 mg PO DAILY 30 days #30 tabs 07/18/24 08/18/24 08/20/24 Rx Allergies Allergy/AdvReac Type Severity Reaction Status Date / Time gabapentin Allergy I went Verified 08/18/24 08:59 crazy Current Medications Generic Name Dose Route Start Last Admin Trade Name Freq PRN Reason Stop Dose Admin Sodium Chloride 1,000 mls @ 30 mls/hr 08/21/24 07:30 08/21/24 07:55 Sodium Chloride 0.9% IV 08/22/24 07:29 30 mls/hr .Q24H LURDES Administration PFSH Anesthesia Medical History Muscle spasm of shoulder region Coronary artery disease Chest pain GERD (gastroesophageal reflux disease) Hx of fracture of skull Sleep apnea Insomnia Shortness of breath Abnormal EKG Benign essential HTN Intermittent chest pain Shortness of breath on exertion Tendinopathy of right shoulder Degenerative arthritis of right shoulder region Cervical (neck) region somatic dysfunction Bilateral thoracic back pain Knee buckling Rosacea HTN (hypertension) Surgical History History of total left hip replacement x 2 History of tonsillectomy and adenoidectomy Hx of hernia repair x 2 History of surgery on arm Family History Mother CAD (coronary artery disease) Stroke Hypertension Father CAD (coronary artery disease) [place] x 4, started in his 50's Diabetes Grandmother Dementia Grandfather Dementia Stroke Social History Smoking and tobacco/nicotine status: never used tobacco/nicotine Alcohol intake: former Substance/Drug Use: never Lives independently: No Household members: spouse and children Marital status: Current occupational status: unemployed Do you think of yourself as: Straight/Heterosexual Current gender identity: Male Agree to transfusion: Yes Data Anesthesia Cardiac Studies: Echocardiogram 01/26/23 Sestamibi Stress Test (Cardiology) 01/26/23
[2024-08-21] MEDS: ceFAZolin 2,000 mg SDV 2000 MG IVP (09:15)
[2024-08-21] MEDS: BUPivacaine 0.25% INJ 10 mL INJECTION (09:34)
[2024-08-21] MEDS: lidocaine-epi 1% 20 mL INJ 10 ML INJECTION (09:35)
--- NOTE | 2024-08-21 09:46 | P.OP_ITS ---
Operative Report Date of procedure: August 21, 2024 Pre-op diagnosis: Lipoma of the abdominal wall Post-op diagnosis: Same Post-op findings: There was a lipomatous mass of the abdominal wall measuring 8 x 6 x 2 cm Procedure done: Excision of subcutaneous mass of the abdominal wall measuring 8 x 6 x 2 cm Specimens removed/disposition: Abdominal wall mass Surgeon: David Cruz MD Christian Counselor: MARQUITA OR Staff Estimated blood loss: 5 Complications: none Brief History: 58-year-old male with a lipoma of the right abdominal wall who presented to my office for excision. After discussion of all risk and benefits as documented in my preop note we decided to proceed. Procedure: Patient was brought into the OR, he was placed in a supine position. General anesthesia was given. The abdomen was prepped and draped in usual sterile fashion. A timeout was conducted. A 5 cm incision was done in the area previously marked in the preoperative holding. The incision was deepened into the subcutaneous tissue and the lipomatous mass was identified. The mass was circumferentially dissected from the surrounding tissue using a combination of electrocautery and blunt dissection. The mass was excised from the deep tissue using electrocautery to prevent bleeding. The mass was passed to the diploma pharmacy technician to be sent to pathology, possible excision measurement was 8 x 6 x 2 cm. The wound was irrigated with saline. Hemostasis was achieved. Local anesthesia was infiltrated. The wound was closed in layers using #2-0 Vicryl for the deep subcutaneous tissue, #3-0 Vicryl for the superficial subcutaneous tissue and #4 Monocryl for the skin. Dermabond was applied. A compressive dressing was applied on top. At the end of the procedure all counts were correct, the patient tolerated well the procedure was transferred to PACU in stable condition
[2024-08-21] MEDS: oxyCODONE 5 mg IR Tab/Cap PO (10:34)
--- NOTE | 2024-08-21 11:04 | ANE.PACU2 ---
Inpatient post-anesthesia follow up: Airway intact: Yes Vital signs: Temperature 97.4 F Pulse Rate 83 Respiratory Rate 16 Blood Pressure 130/81 Pulse Oximetry 99 Oxygen Delivery Me thod Room Air Oxygen Flow Rate 6 Fraction of Inspir ed Oxygen Hydration adequate: Yes Nausea and vomiting: No Pain level: 1 Mental status: Baseline
== END 2024-08-21 11:04 | disposition home or self-care (01) ==
PROVIDERS: PCP Registered Nurse; Visit Provider Surgery
PROC: (CPT 11406; principal; 2024-08-21 08:50)
DX: D17.5 Benign lipomatous neoplasm of intra-abdominal organs (principal); I10 Essential (primary) hypertension; K21.9 Gastro-esophageal reflux disease without esophagitis; Z86.79 Personal history of other diseases of the circulatory system; G47.30 Sleep apnea, unspecified; Z82.49 Family history of ischemic heart disease and other diseases of the circulatory system
CPT/HCPCS: 11406; 12034; 88304; J0690; J1100; J2250; J2405; J2704; J3010; J3490; J7030; J9999

== ENCOUNTER → 2024-08-30 15:05 | Outpatient (BNVA) | payer MEDICARE, SELFPAY | PROVIDERS: PCP Registered Nurse; Visit Provider Internal Medicine | DX: I10 Essential (primary) hypertension (principal); K21.9 Gastro-esophageal reflux disease without esophagitis; M19.011 Primary osteoarthritis, right shoulder | CPT/HCPCS: 99213 ==

== ENCOUNTER → 2024-09-05 13:50 | Outpatient (BNVA) | payer MEDICARE, SELFPAY | PROVIDERS: PCP Registered Nurse; Visit Provider Surgery | DX: D17.9 Benign lipomatous neoplasm, unspecified (principal) | CPT/HCPCS: G0463 ==